=== PATIENT | female | born 1975 | race Caucasian/White ===

== ENCOUNTER 2024-04-13 19:20 | Inpatient (IN) | payer OTHER, SELFPAY ==
[2024-04-13] VITALS (7 sets, daily range): BP systolic 110–134; BP diastolic 65–95; BMI 32.2; BMI 31.2
--- NOTE | 2024-04-13 15:46 | ED.GENMED ---
History of Present Illness
General
Chief Complaint: Breathing Problem
Source: patient and family
Exam Limitations: none
Time Seen by Provider: 04/13/24 15:43
Nursing documentation reviewed up to this point in time: agreed with
Travel History
Have you had any contact with someone who has COVID-19?: No
Do you have any symptoms of coronavirus? Fever > 100 degrees, chills, cough, shortness of breath, sore throat, loss of taste or smell, muscle aches, or headache?: No
History of Present Illness
History of Present Illness:
48-year-old female presents emergency department due to shortness of breath for the last week. Is gotten worse over the past several days.
Past History
Past History
ED Past Medical History: Cancer (breast) and Other (multiple sclerosis)
ED Past Surgical History: Tonsilectomy and Other (bunionectomy, port, mastectomy, breast reconstruction)
Social History
Tobacco: Non-smoker
Alcohol: None
Drug: None
Living: with family
Review of Systems
Review of Systems
Allergies reviewed?: Yes
All Other Systems: Not applicable
Constitutional: Reports no symptoms
EENT: Reports no symptoms
Respiratory: Reports trouble breathing
Cardiac: Reports no symptoms
ABD/GI: Reports no symptoms
: Reports no symptoms
Musculoskeletal: Reports no symptoms
Skin: Reports no symptoms
Neurological: Reports no symptoms
Endocrine: Reports no symptoms
Hematologic/Lymphatic: Reports no symptoms
Psychiatric: Reports no symptoms
Phy Exam
Physical Exam
Physical Exam:
Physical Exam
General: no apparent distress, not acutely ill
Neck: supple. no meningeal signs. normal posterior pharynx
Heart: s1/s2 regular rate and rhythm, no murmur. equal radial
pulses.
HEENT: Pupils equal round reactive to light, EOMI
Lungs: no acute respiratory distress. decreased breath sounds bilaterally
Abdomen: normal bowel sounds. not tender. no CVAT
Neuro: alert and oriented. no focal neurological deficits cranial nerves II through XII intact
Skin: no rash
Psychiatric: well kept. interactive and cooperative
Extremities: no edema. no calf tenderness. negative homans. good distal pulses
Scores
Heart Failure Risk
Heart Failure Risk Score: Yes
History of Stroke or TIA: No
History of intubation for respiratory distress: No
Heart rate on ED arrival >/= 110: Yes
SaO2 <90% on arrival on room air: No
HR >/=110 during 3min walk test (or too ill to perform test): Yes
ECG has acute ischemic changes: No
Urea >/=12mmol/L (BUN 33.6mg/dL): No
Serum CO2>/=35mmol/L: No
Troponin I or T elevated to NM Level (0.4mg/dL): No
NT-proBNP >/=5,000ng/L (5,000pg/ml): Yes
HF Risk Score: 3
Admission Status: HIGH RISK 15.9% Consider SNF treatment or admission to hospital
Course
Orders/Labs/Results
Orders:
Orders
04/13/24 13:55
EKG [Electrocardiogram (*1)] Urgent
Reason for Study: Shortness of Breath
04/13/24 Dinner
Cholesterol Lowering
At Your Request: Full Participation
Does patient need a safe tray?: No
Reason for opting out of [employer] order writing: Provider Decision
Cholesterol Lowering: Sodium, 2 Gram
04/13/24 15:52
Cardiac Monitoring- Treatment ONCE
IV Insert/Care/Rem.- Treatment PRN
Pulse Ox/cont/shift [RESP] Stat
Quantity: 1
04/13/24 15:53
CR Chest - 2 Views Urgent
Comment:
Reason For Exam: short of breath
O2 Therapy [RESP] Urgent
Titrate/Wean O2 to maintain O2 sat greater than (%): 92
04/13/24 16:47
Complete Blood Count/With Diff Urgent
Comprehensive Metabolic Panel Urgent
D-Dimer Urgent
NT-proBNP Urgent
Troponin I Urgent
04/13/24 17:37
CT Chest Pe Study Urgent
Comment:
Reason For Exam: short of breath, ddimer elevated
04/13/24 18:59
Admit/Transfer Patient As Directed
Co-Sign Provider:
Level of Care: Inpatient admission
Assign to:: Telemetry
Physician / Group: blessing
Diagnosis: chf exacerbation
Reason for Telemetry: Pulmonary Edema
Date to Stop Telemetry: 04/16/24
Time to Stop Telemetry: 11:00
Reason for Hospitalization: chf exacerbation
Expected length of stay greater than two midnights?: Yes
ELOS- Estimated Length of Stay in days: 2
I certify the patient meets the requirements for IP care: Yes
04/13/24 19:00
Code Status As Directed
Resuscitation Status: Full Code
04/13/24 19:01
Furosemide [Lasix] 40 mg IV NOW STA
04/13/24 19:57
Alprazolam [Xanax] 0.5 mg PO DAILY PRN
04/13/24 19:57
Echo 2D MMode Color/Doppler Routine
Reason for Study: heart failure
Activity As Directed
Activity Level: As Tolerated
Intake/ Output As Directed
Frequency: q12h
Patient Education As Directed
Type: CHF folder
Comment: give on admission. Document in Interdisciplinary Education record
Sleep Apnea Assessment by RN As Directed
Comment:
Physician Instructions:
Vital Signs As Directed
Frequency: Other
Additional Instructions:: Q12 or per unit guidelines if more frequent.
Weight As Directed
Frequency: Daily
Type of Scale: Standing Scale
Comment: Daily morning weight. If unable to stand, use balanced bed scale.
Weight As Directed
Frequency: Once
Type of Scale: Standing Scale
Comment: Upon Admission. If unable to stand, use balanced bed scale.
Pulse Ox/cont/shift [RESP] Routine
Quantity: 1
Special Instructions: Daily pulse oximetry at rest. If greater than 92% at rest also obtain pulse oximetry
while ambulating as tolerated.
DX Deep Vein Thrombosis Video Routine
04/13/24 20:00
Heparin 5,000 units SC Q12
04/13/24 22:47
Troponin I Q6H
04/14/24 01:57
Troponin I Q6H
04/14/24 06:00
Complete Blood Count/With Diff IN AM
Comprehensive Metabolic Panel IN AM
04/14/24 07:57
Troponin I Q6H
04/14/24 08:00
Docusate Sodium [Colace] 200 mg PO DAILY
Furosemide [Lasix] 40 mg IV DAILY
Lactobac/Bifidobac [Visbiome] 1 cap PO DAILY
fexofenadine 180 mg PO DAILY
04/14/24 13:57
Troponin I Q6H
04/16/24 11:00
DC Protocol for Telemetry ONCE
Abnormal Lab Results
04/13/24
16:47
WBC 12.5 H 10^3/uL
(4.8-10.8)
MCHC 32.0 L g/dL
(33.0-37.0)
RDW 15.9 H %
(11.5-14.5)
MPV 11.2 H fL
(7.4-10.4)
Absolute Neuts (auto) 6.7 H 10^3/uL
(1.4-6.5)
Absolute Lymphs (auto) 3.8 H 10^3/uL
(1.2-3.4)
Absolute Eos (auto) 1.3 H 10^3/uL
(0-0.7)
Eosinophils % 10.3 H %
(0-6)
D-Dimer 1.75 H ug/mlFEU
(0.00-0.50)
Chloride 108 H mmol/L
(98-107)
Carbon Dioxide 20 L mmol/L
(22-30)
Glucose 101 H mg/dl
(70-99)
Total Bilirubin 1.5 H mg/dl
(0.2-1.3)
AST 52 H U/L
(14-36)
ALT 87 H U/L
(0-35)
04/13/24 16:47
04/13/24 16:47
Vital Signs
Initial and Last Documented VS:
Initial Vital Signs
Temp Pulse Resp BP Pulse Ox
97.7 F 96 18 132/94 95
04/13/24 13:51 04/13/24 13:51 04/13/24 13:51 04/13/24 13:51 04/13/24 13:51
Last Documented Vital Signs
Temp Pulse Resp BP Pulse Ox
97.7 F 112 28 134/95 93
04/13/24 13:51 04/13/24 19:12 04/13/24 18:30 04/13/24 19:12 04/13/24 18:30
MDM/Problems Addressed
Differential Diagnosis Includes:
Pulmonary embolism, CHF, pneumonia
MDM/Problems Addressed:
48-year-old female with bilateral pleural effusion, no PE, suspect CHF of unclear etiology.
Chronic conditions affecting care: Neurological disorder (Multiple sclerosis)
Acute Exacerbation and/or Progression of Chronic Illness: Neurological disorder (Multiple sclerosis)
*Radiology
Radiology exam reviewed: preliminary read by ED provider (CT chest bilateral pleural effusions, no PE)
*Pulse Oximetry
Patient hypoxic: yes
*EKG
Interpreted by ED Provider?: Yes
EKG Intrepretation Date: 04/13/24
EKG Intrepretation Time: 13:59
Interpretation: abnormal
Comparison EKG: no comparison EKG present
Heart Rate: 113
Rate: tachycardiac
Rhythm: sinus tachycardia
Viola: left axis deviation
Interval: normal interval
QRS Pattern: normal QRS
Ischemia: no ischemia
*Shank Burnisher Interpretation
Rate: normal
Interpretation: normal
Heart Rate: 95
Rhythm: sinus
*Critical Care Note
Total Time (30-74mins, 75-104mins- exclusive of procedures): Not Applicable
Patient Management
Social determinants of health affecting care: Living situation
Discussion with other providers: Hospitalist
Escalation/DeEscalation of care consider admission/obs:
admit indicated
ED Attending Note
-
Portions of this chart may have been created with voice recognition software.� Occasional wrong word or��sound alike� substitutions may have occurred due to the inherent limitations of voice recognition software.
Discharge Plan
Departure
Patient Disposition: Admit
Date of Disposition: 04/13/24
Time of Disposition: 18:37
Admit to: Telemetry
Presentation/result/management discussed w/ accepting MD/DO: Hospitalist
Patient with high blood pressure during this ER visit?: Yes
Condition: Fair
Discharge Problem:
Acute exacerbation of CHF (congestive heart failure), Bilateral pleural effusion
Interventions
Interventions:
*Risk Screen - Suicide Last Done: 04/13/24 16:00
*General Assessment Last Done: 04/13/24 16:00
*Neglect/Abuse Screening Last Done: 04/13/24 16:00
*ED COVID-19 Vaccine History Last Done: 04/13/24 16:00
ED- Cardiac Assessment Last Done: 04/13/24 16:00
ED- Pulmonary Assessment Last Done: 04/13/24 16:00
[2024-04-13 16:56] LABS: % Eosinophils 10.3 % (0-6); % Immature Granulocytes 0.3 % (0-0.5); % Lymphocytes 30.6 % (20.5-51.1); % Monocytes 4.3 % (1.7-9.3); % Neutrophils 53.5 % (42.2-75.2); Absolute Basophils 0.1 10^3/uL (0-0.2); Absolute Eosinophils 1.3 10^3/uL (0-0.7); Absolute Lymphocytes 3.8 10^3/uL (1.2-3.4); Absolute Monocytes 0.5 10^3/uL (0.1-0.6); Absolute Neutrophils 6.7 10^3/uL (1.4-6.5); Hematocrit 38.8 % (37.0-47.0); Hemoglobin 12.4 g/dL (12.0-16.0); Mean Corpuscular Hgb 27.8 pg (27.0-31.0); Mean Platelet Volume 11.2 fL (7.4-10.4); Nucleated Red Blood Cells % 0.3 %; Platelet Count 242 10^3/uL (130-400); Red Blood Cell Count 4.46 10^6/uL (4.20-5.40); Red Cell Dist. Width 15.9 % (11.5-14.5); White Blood Cell Count 12.5 10^3/uL (4.8-10.8)
[2024-04-13 17:12] LABS: D-Dimer 1.75 ug/mlFEU (0.00-0.50)
[2024-04-13 17:21] LABS: NT-proBNP 6380 pg/ml; Troponin I 0.017 ng/ml
[2024-04-13 17:46] LABS: ALT (SGPT) 87 U/L (0-35); AST (SGOT) 52 U/L (14-36); Alkaline Phosphatase 101 U/L (38-126); Blood Urea Nitrogen 14 mg/dl (7-17); Calcium 9.3 mg/dl (8.4-10.2); Carbon Dioxide 20 mmol/L (22-30); Chloride 108 mmol/L (98-107); Glucose 101 mg/dl (70-99); Potassium 4.2 mmol/L (3.5-5.1); Sodium 138 mmol/L (135-145); Total Bilirubin 1.5 mg/dl (0.2-1.3); Total Protein 6.5 g/dl (6.3-8.2); eGFR > 60.00
--- NOTE | 2024-04-13 18:53 | PHANOTE ---
Med Rec Note:
Unable to find recent fill in last year or any mention in [facility] for Furosemide. Pt states she rarely takes it.
--- NOTE | 2024-04-13 19:02 | HPS.HSE ---
Family Physician
-
Family Physician: Malcolm Marie
Chief Complaint
-
shortness of breath
History of Present Illness
48-year-old female past medical history of breast cancer, multiple sclerosis, anxiety/depression, presenting with shortness of breath for the past week which has gotten worse over the past several days which initially attribute to panic attacks.
Shortness of breath is worse with exertion and when she lies down flat. She has chronic lower extremity which stable. She denies any weight gain. She has occasional cough in the mornings which is not new and sometimes productive. She denies any
fevers or chills. She does have chest pressure as if an elephant is sitting on her chest.
She was given a prescription for Lasix previously for lower extremity edema but has not been taking it recently
She denies any family history of heart disease.
She is a former smoker. Denies alcohol use. She does use medical marijuana.
Medical History
Past Medical History
Past Medical History: Reports Other (breast cancer, multiple sclerosis, anxiety/depression,)
Past Surgical History: Reports Other (Tonsilectomy and Other (bunionectomy, port, mastectomy, breast reconstruction))
Social History
Tobacco: Former Smoker
Alcohol: None
Drug: Marijuana
Family History
Family History: Not pertinent
Allergies / Home Medications
Allergies reflects when Allergies were last updated in [facility].
Home Medications with original date entered in [facility]
Allergy/Medication List:
Allergies
Allergy/AdvReac Type Severity Reaction Status Date / Time
No Known Allergies Allergy Unverified 04/13/24 13:52
Home Medications
Fish Oil 3,000 mg PO DAILY 04/13/24
Lactobac no.2-Bifidobac no.1-S. thermo 112.5 billion cell capsule (Visbiome) 1 cap PO DAILY 04/13/24
Medical Marijuana 1 inh inhalation DAILY PRN anxiety 04/13/24
alprazolam 0.5 mg tablet 0.5 mg PO DAILY PRN anxiety 04/13/24
docusate sodium 100 mg capsule 200 mg PO DAILY 04/13/24
fexofenadine 180 mg tablet 180 mg PO DAILY 04/13/24
fiber 2 gummy PO DAILY 04/13/24
furosemide 40 mg tablet 40 mg PO BID PRN swelling 04/13/24
natalizumab 300 mg/15 mL intravenous solution (Tysabri) 300 mg IV Q4W 04/13/24
Review of Systems
-
History Source: Patient
A 12 point ROS was completed and negative except as noted: Yes
Constitutional: Reports No Symptoms
EENT: Reports No Symptoms
Respiratory: Reports See HPI
Cardiac: Reports See HPI
Abdomen/GI: Reports No Symptoms
: Reports No Symptoms
Musculoskeletal: Reports No Symptoms
Skin: Reports No Symptoms
Neurological: Reports No Symptoms
Endocrine: Reports No Symptoms
Hematologic/Lymphatic: Reports No Symptoms
Psych: Reports No Symptoms
Physical Exam
Vital Signs
Vital Signs
Temp Pulse Resp BP Pulse Ox
97.7 F 114 28 110/92 93
04/13/24 13:51 04/13/24 18:30 04/13/24 18:30 04/13/24 18:00 04/13/24 18:30
Physical Exam
General: Well Developed, Well Nourished and No Apparent Distress
HEENT: NormoCephalic, Moist mucous membranes and Atraumatic
Respiratory: Clear
Cardiac: S1/S2 and Regular Rhythm; No Murmur or Rub
GI: Soft, Non Tender, Non Distended and Normal Bowel Sounds; No Organomegaly
Rectal: Deferred by Provider
Musculoskeletal: No Clubbing, No Cyanosis and No Edema
Skin: No Rash
Neuro: Nonfocal/grossly intact
Laboratory Results
-
04/13/24 16:47
04/13/24 16:47
Laboratory Results
Total Bilirubin 1.5 mg/dl (0.2-1.3) H 04/13/24 16:47
AST 52 U/L (14-36) H 04/13/24 16:47
ALT 87 U/L (0-35) H 04/13/24 16:47
Alkaline Phosphatase 101 U/L (38-126) 04/13/24 16:47
Troponin I 0.017 ng/ml 04/13/24 16:47
Data Reviewed
-
Lab Data: Labs Reviewed by me
Old Records: Reviewed
Impression/Plan
-
IMPRESSION:
PLAN:
# Acute CHF exacerbation
# Moderate to large bilateral pleural effusions
-Elevated D-dimer prompting CT PE shows moderate to large bilateral pleural effusion with underlying pulm interstitial edema, probable bilateral lower lobe atelectasis less likely pneumonia, left upper lobe subpleural groundglass density likely
focal alveolar edema
-Cardiac BNP of 6300
-Check I's and O's, daily weights
-40 IV Lasix daily
-Check echo
-Cardiology consulted
-IR consulted for thoracentesis
Multiple sclerosis
-on Tysabri
History of breast cancer
Anxiety
-Continue alprazolam
Former smoker
Medical marijuana user
Full code
DVT prophylaxis�heparin
Cardiac diet
[2024-04-13] MEDS: LASIX 40 MG IV (19:12)
--- NOTE | 2024-04-13 20:10 | PTCARENOTE ---
Patient received from the ED via stretcher. Patient ambulated into the room. VSS, 97% on RA. No complaints of pain at this time. Patient AAOx3. Oriented to the room, call dugan is within reach.
[2024-04-13] MEDS: XANAX 0.5 MG PO (20:48)
[2024-04-13] MEDS: HEPARIN 5000 UNITS SC (20:49)
[2024-04-13 23:33] LABS: LDH 295 U/L (120-246); Total Protein 6.5 g/dl (6.3-8.2)
[2024-04-14] VITALS (8 sets, daily range): BP systolic 101–133; BP diastolic 68–98; BMI 31.2
[2024-04-14] MEDS: MELATONIN 5 MG PO ×2 (01:10→22:05)
[2024-04-14 05:36] LABS: % Eosinophils 6.4 % (0-6); % Immature Granulocytes 0.4 % (0-0.5); % Lymphocytes 34.7 % (20.5-51.1); % Monocytes 5.9 % (1.7-9.3); % Neutrophils 51.6 % (42.2-75.2); Absolute Basophils 0.1 10^3/uL (0-0.2); Absolute Eosinophils 0.7 10^3/uL (0-0.7); Absolute Lymphocytes 3.7 10^3/uL (1.2-3.4); Absolute Monocytes 0.6 10^3/uL (0.1-0.6); Absolute Neutrophils 5.4 10^3/uL (1.4-6.5); Hematocrit 37.4 % (37.0-47.0); Mean Corp Hgb Conc. 32.1 g/dL (33.0-37.0); Mean Corpuscular Hgb 27.6 pg (27.0-31.0); Mean Platelet Volume 11.8 fL (7.4-10.4); Nucleated Red Blood Cells % 0.3 %; Platelet Count 212 10^3/uL (130-400); Red Blood Cell Count 4.35 10^6/uL (4.20-5.40); Red Cell Dist. Width 15.8 % (11.5-14.5); White Blood Cell Count 10.5 10^3/uL (4.8-10.8)
[2024-04-14 05:46] LABS: Troponin I 0.026 ng/ml
[2024-04-14 06:24] LABS: ALT (SGPT) 70 U/L (0-35); AST (SGOT) 38 U/L (14-36); Albumin 3.8 g/dl (3.5-5.0); Alkaline Phosphatase 91 U/L (38-126); Blood Urea Nitrogen 16 mg/dl (7-17); Calcium 9.2 mg/dl (8.4-10.2); Carbon Dioxide 21 mmol/L (22-30); Chloride 107 mmol/L (98-107); Estimated Creatinine Clearance 96 ml/min; Glucose 91 mg/dl (70-99); Potassium 4.1 mmol/L (3.5-5.1); Sodium 139 mmol/L (135-145); Total Bilirubin 1.7 mg/dl (0.2-1.3); Total Protein 6.2 g/dl (6.3-8.2); eGFR > 60.00
[2024-04-14] MEDS: COLACE 200 MG PO (07:41)
[2024-04-14] MEDS: LASIX 40 MG IV ×2 (07:42→15:20)
[2024-04-14] MEDS: CLARITIN 10 MG PO (07:42)
[2024-04-14] MEDS: VISBIOME 1 CAP PO (07:42)
[2024-04-14] MEDS: HEPARIN 5000 UNITS SC ×2 (07:42→19:34)
--- NOTE | 2024-04-14 08:30 | CON.CAR ---
Consultation
Consultation Request
Date/Time Consultation Requested: Apr 13 2024
Date/Time Consultation Performed: Apr 14 2024
Requesting Provider: hospitalist
Performing Provider: Semaj Corbett
Reason for Consultation: CHF
Medical History
-
Chief Complaint: SOB
History of Present Illness:
48-year-old female with past medical history of breast cancer, MS, anxiety/depression, who is presenting today with worsening shortness of breath. She tells me that over the last week or 2 she has noticed weight gain bloating and profound dyspnea
on exertion. Over the last few nights she has not been able to lie flat. She would wake up gasping for air. She tells me she struggles to complete full sentences because she is so short of breath. Thus, because of all of these worsening symptoms
she decided to present to the emergency room. In the emergency room she was found to have bilateral pleural effusions and she was admitted for heart failure exacerbation.
Past Medical History
Past Medical History: Other (breast cancer, MS, anxiety/depression)
Past Surgical History: Other (Tonsilectomy and Other (bunionectomy, port, mastectomy, breast reconstruction))
Social History
Tobacco: Former Smoker
Alcohol: Occasional
Drug: Marijuana
Personal: Single
Living: With Family (mother)
Employment: Employed
Family History
Family History: Reviewed & Not Pertinent
Allergies / Home Medications
Allergy/AdvReac Type Severity Reaction Status Date / Time
No Known Allergies Allergy Unverified 04/13/24 13:52
�Medication �Instructions �Recorded �Confirmed �Type
Fish Oil 3,000 mg PO DAILY 04/13/24 04/13/24 History
Lactobac no.2-Bifidobac no.1-S. 1 cap PO DAILY 04/13/24 04/13/24 History
thermo 112.5 billion cell capsule
(Visbiome)
Medical Marijuana 1 inh inhalation DAILY PRN anxiety 04/13/24 04/13/24 History
alprazolam 0.5 mg tablet 0.5 mg PO DAILY PRN anxiety 04/13/24 04/13/24 History
docusate sodium 100 mg capsule 200 mg PO DAILY 04/13/24 04/13/24 History
fexofenadine 180 mg tablet 180 mg PO DAILY 04/13/24 04/13/24 History
fiber 2 gummy PO DAILY 04/13/24 04/13/24 History
furosemide 40 mg tablet 40 mg PO BID PRN swelling 04/13/24 04/13/24 History
natalizumab 300 mg/15 mL 300 mg IV Q4W 04/13/24 04/13/24 History
intravenous solution (Tysabri)
Review of Systems
-
All other systems: Negative unless noted
Physical Exam
Vital Signs
Temp Pulse Resp BP Pulse Ox
98 F 68 16 103/68 97
04/14/24 07:40 04/14/24 07:42 04/14/24 07:40 04/14/24 07:42 04/14/24 07:40
Lab Results
04/14/24 04:51
04/14/24 04:51
Troponin I 0.026 ng/ml 04/14/24 04:51
Ktf-R-Minjmfhujer Pept 6380 pg/ml 04/13/24 16:47
Physical Exam
General: Well Developed and Well Nourished
HEENT: Normocephalic
Respiratory: Other (decreased b/s b/l with absent b/s at the right lower lung base )
Cardiac: Regular Rhythm
GI: Soft
Musculoskeletal: Edema (mild)
Skin: Warm and Dry
Neuro: AO x 3
Psych: Calm
Impression / Plan
-
48-year-old female with history of breast cancer, MS, anxiety/depression who is here today for shortness of breath and new HFrEF.
Acute HFrEF
- lasix 40 IV bid
- thoracentesis
- GDMT: SGLT2i will start, ARNI: low dose Entresto, add metoprolol once HF symptoms better controlled, spironolactone at some point
- Re-evalaute EF in ~ 2-3 months
MS
Breast Ca
Marijuana
- encouraged cessation from smoking
Data Reviewed
-
EKG: Tracing Personally Visualized and interpreted (sr)
Medical Tests (Nuc Med, Echo etc): Image Personally Visualized and interpreted (severely reduced LV fxn )
Labs: Labs Reviewed by me
--- NOTE | 2024-04-14 09:55 | PTCARENOTE ---
Patient had thora today on right side with 1400 mls drained. CXR without evidence of pneumothorax. Will give additional dose of IV lasix today and start Jardiance as ordered.
--- NOTE | 2024-04-14 10:05 | W.PN.HOSP.TC ---
Today's Communication/Plan
-
Continue diuretics
Assessment / Plan
Assessment / Plan
Gen-AAOx3, NAD
HEENT-NC, AT, anicteric, clear oral mm
Neck-supple
CV-reg, no M, +S1/S2
Lungs-clear B/L
Abd-soft, NT, ND
Ext-bilateral lower extremity lymphedema
Musculoskeletal-no cyanosis, clubbing
Skin-warm and dry
Neuro-grossly non-focal
Psych-calm, cooperative
Acute hypoxic respiratory insufficiency -likely due to acute heart failure exacerbation, bilateral pulmonary edema, pleural effusions. Oxygenation normal on room air. Shortness of breath started [address] chest negative for pulmonary embolism. Does show moderate to large bilateral effusions and atelectasis. Left upper lobe subpleural groundglass density of unclear etiology. Consider repeat CT chest in 6 to 12 months.
Acute heart failure reduced EF exacerbation -new diagnosis of heart failure. Echocardiogram completed, report pending. Cardiology following. Continue IV Lasix. Etiology of heart failure unclear so far. BNP 6380.
Bilateral pleural effusions -suspect related to heart failure exacerbation. Right-sided thoracentesis completed today. Awaiting fluid studies. Residual left-sided effusion remains.
Elevated LFTs -unclear etiology. Possible adverse effect of natalizumab.
History of breast cancer -treated 7 years ago and considered cured. Oncologist is in [place].
Bilateral lower extremity lymphedema -she was using as needed Lasix at home, last use was 1 month ago.
Multiple sclerosis -controlled.
Anxiety/depression
Obesity due to excess calories
Full code
Anticipated Discharge: > 48 hours
Subjective/Interval History
-
Date of Service: April 14, 2024
Patient seen and examined. Had thoracentesis this morning, feeling better with less shortness of breath but not back to baseline.
Objective Data
-
Labs:
Laboratory Results
04/14/24
04:51
WBC 10.5
Hgb 12.0
Hct 37.4
Plt Count 212
Sodium 139
Potassium 4.1
Chloride 107
Carbon Dioxide 21 L
BUN 16
Creatinine 0.7
Glucose 91
Calcium 9.2
Total Bilirubin 1.7 H
AST 38 H
ALT 70 H
Alkaline Phosphatase 91
Vital Signs:
Vital Signs
Temp Pulse Resp BP Pulse Ox
98 F 103 18 112/98 97
04/14/24 08:34 04/14/24 09:06 04/14/24 09:06 04/14/24 09:06 04/14/24 09:58
Review of Systems
-
History Source: Patient
All other systems: Reviewed and negative
[2024-04-14] MEDS: JARDIANCE 10 MG PO (10:20)
[2024-04-14 10:40] LABS: Body Fluid pH 7.44
[2024-04-14 10:43] LABS: Body Fluid Mononuclear 95.3 %; Body Fluid Polymorphonuclear 4.7 %; Body Fluid WBC 255 /CUMM
[2024-04-14 10:56] LABS: Body Fluid Amylase < 30 U/L; Body Fluid Glucose 94 mg/dl; Body Fluid LDH < 90 U/L; Body Fluid Protein < 2.0 g/dl; Body Fluid Triglycerides < 30 mg/dl
[2024-04-14 11:12] LABS: Body Fluid Second Tech EF
--- NOTE | 2024-04-14 13:27 | PTCARENOTE ---
Echo with EF 15 - 20%. Patient given heart failure booklet. Reviewed information in booklet and assigned heart failure videos. Patient started on Jardiance - given written medication handout from [employer]. Patient states that she is tired and will
review at a later time and ask questions as they arise.
--- NOTE | 2024-04-14 16:12 | CM ---
met with patient who states mom lives with hre in the [facility],no [place],her bed and bath is on second level,she amb i and is I with hr adl. she has no home oxygen or oter dme.her pcpis dr jacome and she uses [facility] on [address] in
[place].patient has b=never had a vn or n=been in ip rehab.
patient with a hx of breast cancer,ms is adm with chf.she is on iv lasix,sating 97% on ra,,had r sided thoracentesis done.discussed home care with patient and she has declined.Plan:home with no services.
[2024-04-14] MEDS: XANAX 0.5 MG PO (22:06)
[2024-04-15 03:21] VITALS: BP 102/71
[2024-04-15 06:00] VITALS: BMI 29.5
[2024-04-15 06:14] LABS: ALT (SGPT) 48 U/L (0-35); AST (SGOT) 27 U/L (14-36); Albumin 3.6 g/dl (3.5-5.0); Alkaline Phosphatase 81 U/L (38-126); Blood Urea Nitrogen 18 mg/dl (7-17); Calcium 8.9 mg/dl (8.4-10.2); Carbon Dioxide 25 mmol/L (22-30); Chloride 102 mmol/L (98-107); Estimated Creatinine Clearance 75 ml/min; Glucose 89 mg/dl (70-99); Potassium 3.5 mmol/L (3.5-5.1); Sodium 138 mmol/L (135-145); Total Bilirubin 2.5 mg/dl (0.2-1.3); eGFR > 60.00
[2024-04-15 07:35] VITALS: BP 98/68
[2024-04-15] MEDS: COLACE PO ×2 (07:47→13:28)
[2024-04-15] MEDS: JARDIANCE 10 MG PO (07:47)
[2024-04-15] MEDS: HEPARIN 5000 UNITS SC ×2 (07:47→21:42)
[2024-04-15] MEDS: CLARITIN 10 MG PO (07:47)
[2024-04-15] MEDS: VISBIOME 1 CAP PO (07:47)
[2024-04-15] MEDS: LASIX 40 MG IV (07:48)
[2024-04-15] MEDS: ENTRESTO 24 MG/26 MG 1 TAB PO (08:14)
--- NOTE | 2024-04-15 09:18 | W.PN.CD ---
Today's Communication / Plan
-
Continue diuresis
GDMT as BP allows
Heart failure educator/dietary consulted
Impression / Plan
-
BACKGROUND: 48-year-old female with history of breast cancer, MS, anxiety/depression who is here today for shortness of breath and new HFrEF.
HFrEF (EF 15-20%), acute/severe, requiring hospitalization
-Etiology currently unclear
-Diuresis with furosemide 40 mg IV BID, she is down 4 kg from admission
-Bilateral pleural effusions (thora right lung 04/15/2024 1300mL clear aly fluid)
- GDMT as tolerated
-SGLT2i: Jardiance 10 mg daily
-ARNI: Entresto 24/26 mg BID
-Beta anton: will add metoprolol succinate once HF symptoms better controlled
-MRA: spironolactone at some point
-Trend daily weight, I/O, and BMP with diuresis
-Re-evaluate EF in ~2-3 months
-Heart failure education
Severe mitral regurgitation
Severe tricuspid regurgitation
MS, no acute flare
Breast Ca, status postchemotherapy and XRT 7 years ago, in remission (oncology at [facility])
Marijuana, encouraged cessation from smoking
SUBJECTIVE:
Shortness of breath: Improving. Chest pain: None. Dizziness: None.
Physical Exam
Vital Signs/Labs
Vital Signs
Temp Pulse Resp BP Pulse Ox
98.7 F 99 16 98/68 99
04/15/24 07:35 04/15/24 08:14 04/15/24 07:35 04/15/24 08:14 04/15/24 07:35
04/14/24 04/15/24 04/16/24
06:59 06:59 06:59
Actual Weight 79.917 kg 75.551 kg
04/14/24 04:51
05/18/24 04:54
04/13/24
16:47
Zyl-O-Nwgvahufmlm Pept 6380
LAB Results
04/13/24 04/13/24 04/14/24
16:47 23:14 04:51
Troponin I 0.017 0.030 D 0.026
Physical Exam
Constitutional: No acute distress and Comfortable
EENT: Anicteric and Moist mucous membranes
Cardiovascular: Rhythm & rate is regular (Tachycardia), Systolic murmur present and S1S2 is normal
Respiratory: Respiratory effort normal and Lungs clear to auscul.
GI: Soft, Distention absent, Flat, Non tender and Normal bowel sounds
Neuro/Psych: AO x 3
Other: Skin
Data Reviewed
-
Date of Service: April 15, 2024
EKG: Report Reviewed by me
Echo: Report Reviewed by me
Labs: Labs Reviewed by me
Old Records: Reviewed
[2024-04-15] MEDS: LOW STRENGTH ASPIRIN 324 MG PO (10:38)
[2024-04-15 11:20] VITALS: BP 98/57
--- NOTE | 2024-04-15 11:32 | W.PN.HOSP.TC ---
Today's Communication/Plan
-
Continue diuretics
Add potassium
Trend LFTs
Assessment / Plan
Assessment / Plan
Gen-AAOx3, NAD
HEENT-NC, AT, anicteric, clear oral mm
Neck-supple
CV-reg, no M, +S1/S2
Lungs-clear B/L
Abd-soft, NT, ND
Ext-bilateral lower extremity lymphedema
Musculoskeletal-no cyanosis, clubbing
Skin-warm and dry
Neuro-grossly non-focal
Psych-calm, cooperative
Acute hypoxic respiratory insufficiency -likely due to acute heart failure exacerbation, bilateral pulmonary edema, pleural effusions. Oxygenation normal on room air. Shortness of breath started [address] chest negative for pulmonary embolism. Does show moderate to large bilateral effusions and atelectasis. Left upper lobe subpleural groundglass density of unclear etiology. Consider repeat CT chest in 6 to 12 months.
Acute heart failure reduced EF exacerbation -new diagnosis of heart failure. Echocardiogram shows LVEF 15 to 20%, global severe hypokinesis with akinesis of the basal inferior wall, dilated RV with mildly reduced systolic function, severe MR,
severe TR. Continue IV Lasix. Etiology of heart failure unclear so far. BNP 6380.
Anticipate cardiac catheterization on Wednesday per cardiology.
Bilateral pleural effusions -suspect related to heart failure exacerbation. Right-sided thoracentesis completed April 14, fluid studies consistent with transudate and therefore likely due to heart failure. Residual left-sided effusion remains.
Elevated LFTs -unclear etiology, possibly due to passive congestion from heart failure. Possible adverse effect of natalizumab. Rising bilirubin noted. Asymptomatic.
History of breast cancer -treated 7 years ago and considered cured. Oncologist is in [place].
Bilateral lower extremity lymphedema -she was using as needed Lasix at home, last use was 1 month ago.
Multiple sclerosis -controlled.
Anxiety/depression
Obesity due to excess calories
Full code
Anticipated Discharge: > 48 hours
Subjective/Interval History
-
Date of Service: April 15, 2024
Patient seen and examined. No complaints.
Objective Data
-
Labs:
Laboratory Results
04/15/24
04:54
Sodium 138
Potassium 3.5
Chloride 102
Carbon Dioxide 25
BUN 18 H
Creatinine 0.9
Glucose 89
Calcium 8.9
Total Bilirubin 2.5 H
AST 27
ALT 48 H
Alkaline Phosphatase 81
Vital Signs:
Vital Signs
Temp Pulse Resp BP Pulse Ox
98.7 F 99 16 98/68 97
04/15/24 07:35 04/15/24 08:14 04/15/24 07:35 04/15/24 08:14 04/15/24 07:35
I&O
04/14/24 04/15/24 04/16/24
06:59 06:59 06:59
Intake Total 480 / 480
Balance 480 / 480
Review of Systems
-
History Source: Patient
All other systems: Reviewed and negative
[2024-04-15 12:07] LABS: Direct Bilirubin 0.4 mg/dl (0.0-0.4)
--- NOTE | 2024-04-15 12:39 | CM ---
CM consulted for med pricing
Pricing completed via ambulatory orders
Full coverage/$0 for all meds (Farxiga, Entresto, Jardiance)
Of note, Farxiga is covered but generic is not per amb orders
Update to Jaky Munoz/brock
ADC >48 hours
CM will continue to follow for dc planning
Discharge Disposition- home, no needs anticipated
[2024-04-15] MEDS: KCL 20 MEQ PO (13:00)
--- NOTE | 2024-04-15 13:29 | PTCARENOTE ---
Patient started on Entresto today. Lexicomp patient education given. Reviewed with patient. Patient verbalizes understanding of teaching. Denies questions at this time.
[2024-04-15 15:33] VITALS: BP 82/55
[2024-04-15] MEDS: LASIX IV (16:10)
--- NOTE | 2024-04-15 16:39 | PTCARENOTE ---
Patient with BP 83/55. Verbal order to hold Lasix this afternoon. Patient asymptomatic.
[2024-04-15 19:47] VITALS: BP 105/74
[2024-04-15] MEDS: SENOKOT 8.59999999999999964 MG PO (21:34)
[2024-04-15] MEDS: COLACE 100 MG PO (21:34)
[2024-04-15] MEDS: TOPROL XL 12.5 MG PO (21:41)
[2024-04-15] MEDS: XANAX 0.5 MG PO (22:34)
[2024-04-15] MEDS: MELATONIN 5 MG PO (22:34)
[2024-04-15 23:00] VITALS: BP 106/67
[2024-04-16] VITALS (7 sets, daily range): BP systolic 88–109; BP diastolic 54–73; BMI 29.3
[2024-04-16 06:24] LABS: ALT (SGPT) 41 U/L (0-35); AST (SGOT) 28 U/L (14-36); Albumin 3.5 g/dl (3.5-5.0); Alkaline Phosphatase 73 U/L (38-126); Blood Urea Nitrogen 17 mg/dl (7-17); Calcium 8.7 mg/dl (8.4-10.2); Carbon Dioxide 27 mmol/L (22-30); Chloride 103 mmol/L (98-107); Estimated Creatinine Clearance 82 ml/min; Glucose 86 mg/dl (70-99); Potassium 3.7 mmol/L (3.5-5.1); Sodium 137 mmol/L (135-145); Total Bilirubin 2.2 mg/dl (0.2-1.3); Total Protein 5.9 g/dl (6.3-8.2); eGFR > 60.00
--- NOTE | 2024-04-16 08:39 | W.PN.HOSP.TC ---
Today's Communication/Plan
-
N.p.o. after midnight
Assessment / Plan
Assessment / Plan
Gen-AAOx3, NAD
HEENT-NC, AT, anicteric, clear oral mm
Neck-supple
CV-reg, no M, +S1/S2
Lungs-clear B/L
Abd-soft, NT, ND
Ext-bilateral lower extremity lymphedema
Musculoskeletal-no cyanosis, clubbing
Skin-warm and dry
Neuro-grossly non-focal
Psych-calm, cooperative
Acute hypoxic respiratory insufficiency -likely due to acute heart failure exacerbation, bilateral pulmonary edema, pleural effusions. Oxygenation normal on room air. Shortness of breath started [address] chest negative for pulmonary embolism. Does show moderate to large bilateral effusions and atelectasis. Left upper lobe subpleural groundglass density of unclear etiology. Consider repeat CT chest in 6 to 12 months.
Acute heart failure reduced EF exacerbation -new diagnosis of heart failure. Echocardiogram shows LVEF 15 to 20%, global severe hypokinesis with akinesis of the basal inferior wall, dilated RV with mildly reduced systolic function, severe MR,
severe TR. Etiology of heart failure unclear so far. BNP 6380.
Anticipate cardiac catheterization on Wednesday per cardiology.
Entresto and Lasix now on hold for hypotension. Suspect Entresto was the main etiology of the drop in blood pressure. Discussed with cardiology. Remains asymptomatic from hypotension standpoint.
Bilateral pleural effusions -suspect related to heart failure exacerbation. Right-sided thoracentesis completed April 14, fluid studies consistent with transudate and therefore likely due to heart failure. Residual left-sided effusion remains.
Elevated LFTs -unclear etiology, possibly due to passive congestion from heart failure. Possible adverse effect of natalizumab. Rising bilirubin noted. Asymptomatic.
History of breast cancer -treated 7 years ago and considered cured. Oncologist is in [place].
Bilateral lower extremity lymphedema -she was using as needed Lasix at home, last use was 1 month ago.
Multiple sclerosis -controlled.
Anxiety/depression
Obesity due to excess calories
Full code
Anticipated Discharge: > 48 hours
Subjective/Interval History
-
Date of Service: April 16, 2024
Patient seen and examined. No complaints.
Objective Data
-
Labs:
Laboratory Results
04/16/24
05:09
Sodium 137
Potassium 3.7
Chloride 103
Carbon Dioxide 27
BUN 17
Creatinine 0.8
Glucose 86
Calcium 8.7
Total Bilirubin 2.2 H
AST 28
ALT 41 H
Alkaline Phosphatase 73
Vital Signs:
Vital Signs
Temp Pulse Resp BP Pulse Ox
98.0 F 86 18 88/61 99
04/16/24 07:45 04/16/24 07:45 04/16/24 07:45 04/16/24 07:45 04/16/24 07:45
I&O
04/15/24 04/16/24 04/17/24
06:59 06:59 06:59
Intake Total 480 / 480 1200 / 1200
Balance 480 / 480 1200 / 1200
Review of Systems
-
History Source: Patient
All other systems: Reviewed and negative
[2024-04-16] MEDS: HEPARIN 5000 UNITS SC ×2 (09:06→19:44)
[2024-04-16] MEDS: VISBIOME 1 CAP PO (09:06)
[2024-04-16] MEDS: JARDIANCE 10 MG PO (09:06)
[2024-04-16] MEDS: KCL 20 MEQ PO (09:07)
[2024-04-16] MEDS: CLARITIN 10 MG PO (09:07)
[2024-04-16] MEDS: LOW STRENGTH ASPIRIN 81 MG PO (09:07)
[2024-04-16] MEDS: COLACE 200 MG PO (09:09)
[2024-04-16] MEDS: TOPROL XL 12.5 MG PO ×2 (09:09→19:43)
--- NOTE | 2024-04-16 09:35 | W.PN.CD ---
Today's Communication / Plan
-
Continue Lasix
RHC AND LHC April 17
NPO after midngiht today
K>4 Bairon > 2
Impression / Plan
-
BACKGROUND: 48-year-old female with history of breast cancer, MS, anxiety/depression who is here today for shortness of breath and new HFrEF.
HFrEF (EF 15-20%), acute/severe, requiring hospitalization
-Etiology currently unclear, likely chemo/radiation related, HOWEVER, RHC AND LHC April 17
-Diuresis with furosemide 40 mg IV BID, held yesterday for low BP
-Bilateral pleural effusions (thora right lung 04/15/2024 1300mL clear aly fluid)
- GDMT as tolerated
-SGLT2i: Jardiance 10 mg daily
-ARNI: held until more euvolemic (Hypotension April 15)
-Beta anton: increase metoprolol
-MRA: spironolactone at some point
-Trend daily weight, I/O, and BMP with diuresis
-Re-evaluate EF in ~2-3 months
-Heart failure education
Severe mitral regurgitation
Severe tricuspid regurgitation
MS, no acute flare
Breast Ca, status postchemotherapy and XRT 7 years ago, in remission (oncology at [facility])
Marijuana, encouraged cessation from smoking
SUBJECTIVE:
Feeling better today
Physical Exam
Vital Signs/Labs
Vital Signs
Temp Pulse Resp BP Pulse Ox
98.0 F 84 18 99/63 99
04/16/24 07:45 04/16/24 09:09 04/16/24 07:45 04/16/24 09:09 04/16/24 07:45
04/15/24 04/16/24 04/17/24
06:59 06:59 06:59
Actual Weight 166 lb 9 oz 165 lb 3 oz
04/14/24 04:51
05/19/24 05:09
04/13/24
16:47
Ufo-D-Sgdddpwkchl Pept 6380
LAB Results
04/13/24 04/13/24 04/14/24
16:47 23:14 04:51
Troponin I 0.017 0.030 D 0.026
Physical Exam
Constitutional: No acute distress
EENT: Anicteric
Cardiovascular: Rhythm & rate is regular
Respiratory: Respiratory effort normal and Lungs clear to auscul.
GI: Soft
Neuro/Psych: AO x 3
Data Reviewed
-
Date of Service: April 16, 2024
EKG: Tracing Personally Visualized and interpreted (sr pvcs)
Echo: Report Reviewed by me
Labs: Labs Reviewed by me
[2024-04-16] MEDS: LASIX 40 MG IV ×2 (10:33→16:23)
[2024-04-16] MEDS: MELATONIN 5 MG PO (22:30)
[2024-04-16] MEDS: XANAX 0.5 MG PO (22:30)
[2024-04-17] VITALS (22 sets, daily range): BP systolic 66–106; BP diastolic 50–86; BMI 28.9
[2024-04-17 06:15] LABS: ALT (SGPT) 30 U/L (0-35); AST (SGOT) 21 U/L (14-36); Albumin 3.7 g/dl (3.5-5.0); Alkaline Phosphatase 73 U/L (38-126); Blood Urea Nitrogen 15 mg/dl (7-17); Carbon Dioxide 28 mmol/L (22-30); Chloride 100 mmol/L (98-107); Estimated Creatinine Clearance 82 ml/min; Glucose 87 mg/dl (70-99); Potassium 3.5 mmol/L (3.5-5.1); Sodium 137 mmol/L (135-145); Total Bilirubin 1.9 mg/dl (0.2-1.3); Total Protein 6.1 g/dl (6.3-8.2); eGFR > 60.00
[2024-04-17] MEDS: HEPARIN 5000 UNITS SC ×2 (08:03→20:09)
[2024-04-17] MEDS: CLARITIN 10 MG PO (08:05)
[2024-04-17] MEDS: JARDIANCE 10 MG PO (08:06)
[2024-04-17] MEDS: VISBIOME 1 CAP PO (08:06)
[2024-04-17] MEDS: COLACE PO (08:06)
[2024-04-17] MEDS: LOW STRENGTH ASPIRIN 81 MG PO (08:06)
[2024-04-17] MEDS: KCL 20 MEQ PO (08:06)
[2024-04-17] MEDS: TOPROL XL 12.5 MG PO ×2 (08:06→20:09)
[2024-04-17] MEDS: LASIX IV ×2 (09:07→17:12)
--- NOTE | 2024-04-17 10:45 | ITS.CL.CATH ---
Manager Technical Support - Catheterization
Cardiac Catheterization
Procedure Report:
CARDIAC CATHETERIZATION REPORT
Date of Procedure: 04/17/2024
Referring: Semaj Corbett M.D.
Indication: New congestive heart failure.
PROCEDURE:
1. Right heart catheterization.
2. Left heart catheterization.
3. Coronary angiography.
4. Left ventriculography.
ACCESS:
6 [place] right femoral artery using a modified Seldinger technique with a micropuncture kit under ultrasound guidance.
5 [place] right femoral vein using a modified Seldinger technique with a micropuncture kit under ultrasound guidance.
CATHETERS:
1. 5 [place] balloon wedge.
2. 5 [place] JL 4.
3. 5 [place] JR4.
4. 5 [place] angled pigtail.
HEMODYNAMIC DATA
Weight (kg): 73.9
AO (s/d/x mmHg): 83/58/68
LV (s/x mmHg): 87/23 (A wave to 31)
PCWP (a/v/x mmHg): /
PA (s/d/x mmHg): //
RV (s/x mmHg): 45/5
RA (a/v/x mmHg):
SVC SvO2 (%): 60.5
PA SvO2 (%): 60.4
SaO2 (%): 97.1
Hbg (g/dL): 12.0
CO (L/min): 3.07
CI (L/min/m2): 1.73
TPG (mmHg): 6
PVR (Whitehead Units): 1.95
SVR (dynes*seconds*cm^-5): 1642
AVO2 Diff (Volume %): 5.99
AV gradient (x, mmHg): None.
AV area (cm2): Normal.
LEFT VENTRICULOGRAPHY: Performed in an [place] projection. Severely dilated left ventricle with severe global hypokinesis and akinesis of the inferior wall with severely depressed systolic function. Left ventricular ejection fraction estimated at
15%. There is severe (3+) mitral valve regurgitation. There is no aortic valve insufficiency. The aortic root and visualized ascending and descending aorta appear normal.
CORONARY ANGIOGRAPHY
Dominance: Right.
Left Main: Normal size, bifurcating vessel. There is no coronary artery disease.
LAD: Normal size vessel giving rise to 2 significant diagonals. There is no coronary artery disease.
Ramus: Congenitally absent.
Circumflex: Normal size, nondominant vessel. There is no coronary artery disease.
RCA: Normal size, dominant vessel. There is no coronary artery disease.
INTERVENTIONS
None.
Closure Device: 6 [place] Angio-Seal for the right common femoral artery, manual pressure for the right common femoral vein.
Radiation dose (mGy): 239.06
DAP (cm2.Gy): 22.7507
Fluoroscopy time (minutes): 10.4
Sedation time (minutes): 14
CONCLUSIONS:
1. Right dominant circulation with no coronary artery disease.
2. Severely dilated left ventricle with severe global hypokinesis and akinesis of the inferior wall with severely depressed systolic function. LV ejection fraction estimated at 15%.
3. Severe mitral valve regurgitation (3+).
4. Severely depressed cardiac index (1.73 L/min/m�).
5. Moderately elevated filling pressures (LVEDP = 23 mmHg, PCWP = 23 mmHg at 73.9 kg) with evidence of diastolic dysfunction (A wave to 31 mmHg).
RECOMMENDATIONS:
1. Expectant management after cardiac catheterization via right common femoral approach.
2. Limited weight bearing for one week.
3. Guideline directed medical therapy as hemodynamically tolerated. Start with SGLT2 inhibitors given minimal blood pressure effect.
4. Consider transfer to IVU/CVICU for inotrope therapy given severely depressed systolic function and severely depressed cardiac index.
5. Continue diuresis as blood pressure will allow. She will require higher than normal LVEDP/PCWP given the severity of her cardiomyopathy and preload dependence.
Copy to: Semaj Corbett M.D., Malcolm Marie D.O.
Sumanth Hunter DO, FACC, FACP
--- NOTE | 2024-04-17 10:52 | CM ---
Attempted to visit with Nadia today, however she was out of her room for heart cath. Assessment completed previously. Will follow up later today to check in and provide support.
--- NOTE | 2024-04-17 12:16 | W.PN.HOSP.TC ---
Today's Communication/Plan
-
IV Lasix
Continue goal-directed medical therapy
Monitor blood pressure
Cardiology recs
Assessment / Plan
Assessment / Plan
Gen-AAOx3, NAD
HEENT-NC, AT, anicteric, clear oral mm
Neck-supple
CV-reg, no M, +S1/S2
Lungs-clear B/L
Abd-soft, NT, ND
Ext-bilateral lower extremity lymphedema
Musculoskeletal-no cyanosis, clubbing
Skin-warm and dry
Neuro-grossly non-focal
Psych-calm, cooperative
Acute hypoxic respiratory insufficiency -likely due to acute heart failure exacerbation, bilateral pulmonary edema, pleural effusions. Oxygenation normal on room air. Shortness of breath started [address] chest negative for pulmonary embolism. Does show moderate to large bilateral effusions and atelectasis. Left upper lobe subpleural groundglass density of unclear etiology. Consider repeat CT chest in 6 to 12 months.
Acute heart failure reduced EF exacerbation -new diagnosis of heart failure. Echocardiogram shows LVEF 15 to 20%, global severe hypokinesis with akinesis of the basal inferior wall, dilated RV with mildly reduced systolic function, severe MR,
severe TR. Etiology of heart failure unclear so far. BNP 6380.
Entresto and Lasix now on hold for hypotension. Suspect Entresto was the main etiology of the drop in blood pressure. Remains asymptomatic from hypotension standpoint. Restarted on Lasix.
Awaiting cardiac cath results-with severely elevated wedge pressure may need pressure support for increased diuresis as blood pressure.
Continue with Jardiance
Bilateral pleural effusions -suspect related to heart failure exacerbation. Right-sided thoracentesis completed April 14, fluid studies consistent with transudate and therefore likely due to heart failure. Residual left-sided effusion remains.
Elevated LFTs -unclear etiology, possibly due to passive congestion from heart failure. Possible adverse effect of natalizumab. Rising bilirubin noted. Asymptomatic.
History of breast cancer -treated 7 years ago and considered cured. Oncologist is in [place].
Bilateral lower extremity lymphedema -she was using as needed Lasix at home, last use was 1 month ago.
Multiple sclerosis -controlled.
Anxiety/depression
Obesity due to excess calories
Full code
Discussed with patient mother and aunt at bedside in detail
Anticipated Discharge: > 48 hours
Subjective/Interval History
-
Date of Service: April 17, 2024
Seen postcardiac catheterization
Resting in bed
Denies any groin pain
Objective Data
-
Labs:
Laboratory Results
04/17/24
05:20
Sodium 137
Potassium 3.5
Chloride 100
Carbon Dioxide 28
BUN 15
Creatinine 0.8
Glucose 87
Calcium 9.0
Total Bilirubin 1.9 H
AST 21
ALT 30
Alkaline Phosphatase 73
Vital Signs:
Vital Signs
Temp Pulse Resp BP Pulse Ox
98.2 F 86 16 95/65 100
04/17/24 11:51 04/17/24 11:51 04/17/24 11:51 04/17/24 11:51 04/17/24 11:51
I&O
04/16/24 04/17/24 04/18/24
06:59 06:59 06:59
Intake Total 1200 / 1200 720 / 720
Balance 1200 / 1200 720 / 720
Data Reviewed
-
Total Time Spent with Patient (in minutes): 55
[2024-04-17] MEDS: FARXIGA 10 MG PO (14:07)
--- NOTE | 2024-04-17 15:30 | PTCARENOTE ---
PT taken to IVU with belongings, Right groin site post cath CDI, Report given to Russ VASQUEZ.
[2024-04-17] MEDS: DOBUTREX 250 MG IV (16:06)
--- NOTE | 2024-04-17 16:57 | PTCARENOTE ---
Pt received as transfer from 4th floor. AAOx3. Able to ambulate independently from wheelchair to bed. NSR/ST on remote broadcast technician. HRs 80s-100s. Pt started on Dobutamine gtt at 10mcg/kg/min at 1606. Pt rang call dugan at approximately 1630 and stated
that 'I do not feel right, I feel very hot'. Pt BP 66/50 MAP 57. Infusion stopped. Pt BP at 1700 now 92/61 MAP 70. Pt states 'feeling back to normal'. IMAGING TECH made aware. Plan to keep of Dobutamine gtt and hold evening Lasix dose.
--- NOTE | 2024-04-17 17:12 | W.PN.CD ---
Today's Communication / Plan
-
Add dopamine to dobutamine.
Monitor UOP.
She may need an indwelling [place].
Impression / Plan
-
Impression/Plan: 48-year-old female with history of breast cancer s/p radiation, MS, anxiety/depression admitted with new HFrEF.
#HFrEF (EF 15-20%)
-Acute/severe, requiring hospitalization.
-Non-ischemic, likely chemo/radiation related.
-Cardiac catheterization shows, no CAD, moderately elevated filling pressures, severely depressed cardiac index (1.7 L/min/m2). Patient will require higher pressures as she is likely preload dependent/
-Bilateral pleural effusions (thoracentesis of right lung on 04/15/2024 yielded 1300mL clear aly fluid).
-GDMT as tolerated
-SGLT2i: Empagliflozin changed to dapagliflozin 10 mg daily
-ARNI: BP will not yet tolerate.
-Beta anton: tolerating metoprolol succinate 12.5 mg BID.
-MRA: spironolactone at some point.
-Trend daily weight, I/O, and BMP with diuresis
-Transfer to IVU.
-Hypotension with dobutamine. Start concomitant dopamine.
#Severe mitral/tricuspid regurgitation
-New diagnosis.
-Likely functional due to severe LV dilation.
-LV < 20%, no role for XOCHILT.
#MS
-Chronic, stable.
#Breast Ca
-Chronic, stable.
-Status postchemotherapy and XRT 7 years ago, in remission (oncology at [facility]).
#Marijuana, encouraged cessation from smoking
Subjective/Interval History:
Weight is down nearly 6 kg from admission.
Catheterization shows no CAD, moderately elevated filling pressures and severely depressed cardiac function (CI = 1.7 L/min/m2).
Patient transferred to IVU and started on dobutamine, but then became hypotensive. Dobutamine stopped.
DATA:
TTE, 04/14/2024:
CONCLUSIONS
Moderate to severely dilated LV with severely reduced systolic function.
LVEF is 15 to 20% by visual estimation.
Global severe hypokinesis with akinesis of the basal inferior wall.
Dilated RV with mildly reduced systolic function.
Severe mitral regurgitation.
Severe tricuspid regurgitation.
Estimated pulmonary artery pressure of 45-50 mmHg assuming a right atrial
pressure of 15 mmHg.
No prior study for comparison.
Cardiac Catheterization, 04/17/2024:
CONCLUSIONS:
1. Right dominant circulation with no coronary artery disease.
2. Severely dilated left ventricle with severe global hypokinesis and akinesis of the inferior wall with severely depressed systolic function. LV ejection fraction estimated at 15%.
3. Severe mitral valve regurgitation (3+).
4. Severely depressed cardiac index (1.73 L/min/m�).
5. Moderately elevated filling pressures (LVEDP = 23 mmHg, PCWP = 23 mmHg at 73.9 kg) with evidence of diastolic dysfunction (A wave to 31 mmHg).
Physical Exam
Vital Signs/Labs
Vital Signs
Temp Pulse Resp BP Pulse Ox
36.8 C 85 16 88/54 99
04/17/24 14:51 04/17/24 16:46 04/17/24 14:51 04/17/24 16:45 04/17/24 14:51
04/16/24 04/17/24 04/18/24
11:59 11:59 11:59
Actual Weight 74.928 kg 73.992 kg
04/14/24 04:51
04/17/24 05:20
04/13/24
16:47
Yac-N-Annxrtmnpip Pept 6380
Physical Exam
Constitutional: No acute distress and Comfortable
EENT: Anicteric and Moist mucous membranes
Cardiovascular: Rhythm & rate is regular, Pedal edema is absent, JVD pressure is normal, Systolic murmur present and S1S2 is normal
Respiratory: Respiratory effort normal, Lungs clear to auscul., Wheeze Absent, Crackles Absent and Rhonchi Absent
GI: Soft, Distention absent, Flat, Non tender and Normal bowel sounds
Neuro/Psych: AO x 3
Other: Cath Site (Right femoral access sites are C/D/I.)
Data Reviewed
-
Date of Service: April 17, 2024
Medical Decision Making: Reviewed Test Results, Independent Historian Assessment and Test Interpretation
EKG: Tracing Personally Visualized and interpreted and Report Reviewed by me
Echo: Tracing Personally Visualized and interpreted and Report Reviewed by me
X-Ray/CT/US/MRI/NUC/PET: Image Personally Visualized and interpreted and Report Reviewed by me
Medical Tests (PFT, Pathology etc): Image Personally Visualized and interpreted and Report Reviewed by me
Labs: Labs Reviewed by me
Old Records: Reviewed
--- NOTE | 2024-04-17 18:49 | PTCARENOTE ---
Dr. Hunter at bedside with pt. Per Dr. Hunter will hold off on starting dopamine gtt tonight unless BPs become unstable. Order for dopamine gtt will remain in, in case gtt required for BP support overnight. Pt aware of plan.
[2024-04-17] MEDS: MELATONIN 5 MG PO (22:10)
[2024-04-17] MEDS: XANAX 0.5 MG PO (22:11)
--- NOTE | 2024-04-17 23:37 | PTCARENOTE ---
OOB in chair for most of the evening. No complaints of pain or discomfort. Right femoral groin cath sites wnl. Thoracentesis site open to air. Monitor shows SR-ST 70's to 100. Mostly in SR. Voiding without difficulty.
[2024-04-18] VITALS (17 sets, daily range): BP systolic 68–116; BP diastolic 44–78; BMI 28.9
[2024-04-18 05:44] LABS: Hematocrit 37.9 % (37.0-47.0); Hemoglobin 12.2 g/dL (12.0-16.0); Mean Corp Hgb Conc. 32.2 g/dL (33.0-37.0); Mean Corpuscular Hgb 27.9 pg (27.0-31.0); Mean Corpuscular Volume 86.5 fL (81.0-99.0); Mean Platelet Volume 10.8 fL (7.4-10.4); Platelet Count 224 10^3/uL (130-400); Red Blood Cell Count 4.38 10^6/uL (4.20-5.40); Red Cell Dist. Width 15.5 % (11.5-14.5)
[2024-04-18 06:41] LABS: Blood Urea Nitrogen 15 mg/dl (7-17); Calcium 9.5 mg/dl (8.4-10.2); Carbon Dioxide 26 mmol/L (22-30); Chloride 102 mmol/L (98-107); Estimated Creatinine Clearance 81 ml/min; Glucose 82 mg/dl (70-99); Sodium 135 mmol/L (135-145); eGFR > 60.00
--- NOTE | 2024-04-18 06:45 | PTCARENOTE ---
Asymptomatic with b/p of 79/61 to 86/70 this morning.
[2024-04-18] MEDS: COLACE 100 MG PO (09:31)
[2024-04-18] MEDS: LASIX 40 MG IV (09:32)
[2024-04-18] MEDS: CLARITIN 10 MG PO (09:32)
[2024-04-18] MEDS: KCL 20 MEQ PO (09:32)
[2024-04-18] MEDS: LOW STRENGTH ASPIRIN 81 MG PO (09:33)
[2024-04-18] MEDS: TOPROL XL 12.5 MG PO (09:33)
[2024-04-18] MEDS: VISBIOME 1 CAP PO (09:34)
[2024-04-18] MEDS: HEPARIN 5000 UNITS SC ×2 (09:36→21:31)
[2024-04-18] MEDS: FARXIGA 10 MG PO (09:36)
--- NOTE | 2024-04-18 10:30 | W.PN.CD ---
Today's Communication / Plan
-
cont dapagliflozin 10 mg daily
try lisinopril 2.5mg daily today
tolerating metoprolol succinate 12.5 mg BID
transition to lasix 40mg PO daily tomorrow
Impression / Plan
-
Impression/Plan: 48-year-old female with history of breast cancer s/p radiation, MS, anxiety/depression admitted with new HFrEF.
#HFrEF (EF 15-20%), NICM
-Acute/severe, requiring hospitalization.
-we discussed topic of referral to advanced HF center: she is not ready for this now, but understands likely needed in future, especially if BP limits GDMT
-Non-ischemic, likely chemo/radiation related.
-Cardiac catheterization shows, no CAD, moderately elevated filling pressures, severely depressed cardiac index (1.7 L/min/m2)
-Bilateral pleural effusions (s/p thoracentesis of right lung on 04/15/2024 yielded 1300mL clear aly fluid).
-GDMT as tolerated: BP is main limitation currently
-SGLT2i: cont dapagliflozin 10 mg daily
-CARLI/ARB/ARNI: try lisinopril 2.5mg daily today
-Beta anton: tolerating metoprolol succinate 12.5 mg BID
-MRA: spironolactone at some point, pehaps as outpatient
-she received IV lasix this AM: trend labs and tele
-transition to lasix 40mg PO daily tomorrow
#Severe mitral/tricuspid regurgitation
-New diagnosis.
-Likely functional due to severe LV dilation.
-LV < 20%, no role for XOCHILT.
#MS
-Chronic, stable.
#Breast Ca
-Chronic, stable.
-Status postchemotherapy and XRT 7 years ago, in remission (oncology at [facility]).
#Marijuana, encouraged cessation from smoking
Subjective/Interval History:
SOB and edema better.
DATA:
TTE, 04/14/2024:
CONCLUSIONS
Moderate to severely dilated LV with severely reduced systolic function.
LVEF is 15 to 20% by visual estimation.
Global severe hypokinesis with akinesis of the basal inferior wall.
Dilated RV with mildly reduced systolic function.
Severe mitral regurgitation.
Severe tricuspid regurgitation.
Estimated pulmonary artery pressure of 45-50 mmHg assuming a right atrial
pressure of 15 mmHg.
No prior study for comparison.
Cardiac Catheterization, 04/17/2024:
CONCLUSIONS:
1. Right dominant circulation with no coronary artery disease.
2. Severely dilated left ventricle with severe global hypokinesis and akinesis of the inferior wall with severely depressed systolic function. LV ejection fraction estimated at 15%.
3. Severe mitral valve regurgitation (3+).
4. Severely depressed cardiac index (1.73 L/min/m�).
5. Moderately elevated filling pressures (LVEDP = 23 mmHg, PCWP = 23 mmHg at 73.9 kg) with evidence of diastolic dysfunction (A wave to 31 mmHg).
Physical Exam
Vital Signs/Labs
Vital Signs
Temp Pulse Resp BP Pulse Ox
97.9 F 96 16 82/60 98
04/18/24 08:10 04/18/24 08:10 04/18/24 08:10 04/18/24 05:16 04/18/24 08:10
04/17/24 04/18/24 04/19/24
06:59 06:59 06:59
Actual Weight 73.992 kg 73.9 kg
04/18/24 05:12
04/18/24 05:12
04/13/24
16:47
Mmu-Z-Dfkaxcedlos Pept 6380
Physical Exam
Constitutional: No acute distress and Comfortable
EENT: Moist mucous membranes
Cardiovascular: Rhythm & rate is regular, Pedal edema present, JVD present and Systolic murmur present
Respiratory: Respiratory effort normal and Lungs clear to auscul.
GI: Soft, Distention absent and Flat
Neuro/Psych: AO x 3
Data Reviewed
-
Date of Service: April 18, 2024
EKG: Other (SR 70s-80s, occasional PVC and triplets)
Labs: Labs Reviewed by me
--- NOTE | 2024-04-18 10:48 | W.PN.HOSP.TC ---
Today's Communication/Plan
-
Continue with goal-directed medical therapy
Monitor blood pressure
Assessment / Plan
Assessment / Plan
Gen-AAOx3, NAD
HEENT-NC, AT, anicteric, clear oral mm
Neck-supple
CV-reg, no M, +S1/S2
Lungs-clear B/L
Abd-soft, NT, ND
Ext-bilateral lower extremity lymphedema
Musculoskeletal-no cyanosis, clubbing
Skin-warm and dry
Neuro-grossly non-focal
Psych-calm, cooperative
Acute hypoxic respiratory insufficiency -likely due to acute heart failure exacerbation, bilateral pulmonary edema, pleural effusions. Oxygenation normal on room air. Shortness of breath started [address] chest negative for pulmonary embolism. Does show moderate to large bilateral effusions and atelectasis. Left upper lobe subpleural groundglass density of unclear etiology. Consider repeat CT chest in 6 to 12 months.
Acute heart failure reduced EF exacerbation -new diagnosis of heart failure. Echocardiogram shows LVEF 15 to 20%, global severe hypokinesis with akinesis of the basal inferior wall, dilated RV with mildly reduced systolic function, severe MR,
severe TR. Etiology of heart failure unclear so far. BNP 6380.
Suspect Entresto was the main etiology of the drop in blood pressure. Remains asymptomatic from hypotension standpoint. Restarted on Lasix.
Cardiac catheterization on 04/17 shows no coronary artery disease and no intervention performed. Moderately elevated filling pressure. Nonischemic cardiomyopathy raises possibility due to chemotherapy.
Continue with Jardiance plan for low-dose CARLI inhibitor. Did not tolerate Entresto. Lasix 40 mg on discharge. Cont KCL.
GDMT limited due to hypotension.
Bilateral pleural effusions -suspect related to heart failure exacerbation. Right-sided thoracentesis completed April 14, fluid studies consistent with transudate and therefore likely due to heart failure. Residual left-sided effusion remains.
Stable on room air.
Elevated LFTs -unclear etiology, possibly due to passive congestion from heart failure. Possible adverse effect of natalizumab. Rising bilirubin noted. Asymptomatic.
History of breast cancer -treated 7 years ago and considered cured. Oncologist is in [place].
Bilateral lower extremity lymphedema -she was using as needed Lasix at home, last use was 1 month ago.
Multiple sclerosis -controlled.
Anxiety/depression
Obesity due to excess calories
Full code
Anticipated Discharge: Within 24 hours
Subjective/Interval History
-
Date of Service: April 18, 2024
Denies lightheaded or dizziness
Objective Data
-
Labs:
Laboratory Results
04/18/24
05:12
WBC 9.0
Hgb 12.2
Hct 37.9
Plt Count 224
Sodium 135
Potassium 4.0
Chloride 102
Carbon Dioxide 26
BUN 15
Creatinine 0.8
Glucose 82
Calcium 9.5
Vital Signs:
Vital Signs
Temp Pulse Resp BP Pulse Ox
97.9 F 96 16 82/60 98
04/18/24 08:10 04/18/24 08:10 04/18/24 08:10 04/18/24 05:16 04/18/24 08:10
I&O
04/17/24 04/18/24 04/19/24
06:59 06:59 06:59
Intake Total 720 / 720 120 / 120
Balance 720 / 720 120 / 120
Data Reviewed
-
Total Time Spent with Patient (in minutes): 55
[2024-04-18] MEDS: ZESTRIL 2.5 MG PO (12:03)
--- NOTE | 2024-04-18 13:01 | CM ---
CM following for DC planning needs.
Pt. transferred to IVU yesterday.
Reviewed initial assessment. Pt. resides w/ mother in a multi level private home. Pt. is functionally indep. w/ ADLs, mobility without the use of any assisted device.
Anticipate DC to home once medically stable, without needs.
Will cont. to follow.
[2024-04-18] MEDS: TOPROL XL PO (21:19)
[2024-04-18] MEDS: ProAmatine 5 MG PO (23:18)
[2024-04-19] VITALS (17 sets, daily range): BP systolic 74–106; BP diastolic 54–80; PULSE 85–98; BMI 28.9
--- NOTE | 2024-04-19 00:27 | PTCARENOTE ---
Pt.'s BP running low this shift, 74/59 @1926, pt. completely asymptomatic. House DRAW[facility] IN [facility] Karli notified, hold parameters placed on Toprol. BP up to 87/66 at 2046 (Toprol held), but then dropped to 70/48 @ 2224 (pt. still asymptomatic). Dr. Perkins
notified, Toprol and lisinopril placed on hold, midodrine ordered and given. Nisa Brown into see pt. and aware of situation. BP 1hr post midodrine 75/57. Nisa Brown made aware; will recheck in 1 hour. Pt. remains asymptomatic, NSR on the
monitor in the 80's.
[2024-04-19] MEDS: MELATONIN PO (00:39)
--- NOTE | 2024-04-19 04:26 | PTCARENOTE ---
Pt.'s BP 74/65 (taken 3 times, all similar results, on different arms and in different positions, see vitals flow sheet). Pt. remains asymptomatic. Nisa Brown notified, no new orders for now.
[2024-04-19 05:22] LABS: Blood Urea Nitrogen 18 mg/dl (7-17); Calcium 9.1 mg/dl (8.4-10.2); Carbon Dioxide 27 mmol/L (22-30); Chloride 99 mmol/L (98-107); Estimated Creatinine Clearance 81 ml/min; Glucose 85 mg/dl (70-99); Potassium 4.2 mmol/L (3.5-5.1); Sodium 134 mmol/L (135-145); eGFR > 60.00
--- NOTE | 2024-04-19 07:22 | W.PN.CD ---
Today's Communication / Plan
-
Intermittent LR 250 mL boluses.
Cardiac MRI.
I will reach out to [facility] to make them aware of this patient.
Impression / Plan
-
Impression/Plan: 48-year-old female with history of breast cancer s/p radiation, MS, anxiety/depression admitted with new HFrEF.
#HFrEF (EF 15-20%), NICM
-Acute/severe, requiring hospitalization.
-we discussed topic of referral to advanced HF center: she is not ready for this now, but understands likely needed in future, especially if BP limits GDMT
-Non-ischemic, likely chemo/radiation related.
-Cardiac catheterization shows, no CAD, moderately elevated filling pressures, severely depressed cardiac index (1.7 L/min/m2)
-Bilateral pleural effusions (s/p thoracentesis of right lung on 04/15/2024 yielded 1300mL clear aly fluid).
-GDMT as tolerated: BP is main limitation currently
-SGLT2i: Continue dapagliflozin 10 mg daily.
-CARLI/ARB/ARNI: Did not tolerate lisinopril 2.5 mg daily.
-Beta anton: Previously tolerating metoprolol succinate 12.5 mg BID, now on hold with hypotension.
-MRA: spironolactone at some point, pehaps as outpatient.
-I suspect she is below her optimal volume madelaine and will be relatively preload dependent.
-LR 250 mL bolus.
-Hold any further diuretics at this time.
-She will need a cardiac MRI.
-She is asymptomatic, but I will still touch base with our colleagues at [facility].
#Severe mitral/tricuspid regurgitation
-New diagnosis.
-Likely functional due to severe LV dilation.
-LV < 20%, no role for XOCHILT.
#MS
-Chronic, stable.
#Breast Ca
-Chronic, stable.
-Status postchemotherapy and XRT 7 years ago, in remission (oncology at [facility]).
#Marijuana, encouraged cessation from smoking
Subjective/Interval History:
Patient received furosemide 40 mg IV and lisinopril 2.5 mg PO yesterday.
BP's have been low (70's/50'5) throughout the night.
Hold parameters placed on all GDMT and patient was given midodrine without meaningful effect.
Patient is asymptomatic.
DATA:
TTE, 04/14/2024:
CONCLUSIONS
Moderate to severely dilated LV with severely reduced systolic function.
LVEF is 15 to 20% by visual estimation.
Global severe hypokinesis with akinesis of the basal inferior wall.
Dilated RV with mildly reduced systolic function.
Severe mitral regurgitation.
Severe tricuspid regurgitation.
Estimated pulmonary artery pressure of 45-50 mmHg assuming a right atrial
pressure of 15 mmHg.
No prior study for comparison.
Cardiac Catheterization, 04/17/2024:
CONCLUSIONS:
1. Right dominant circulation with no coronary artery disease.
2. Severely dilated left ventricle with severe global hypokinesis and akinesis of the inferior wall with severely depressed systolic function. LV ejection fraction estimated at 15%.
3. Severe mitral valve regurgitation (3+).
4. Severely depressed cardiac index (1.73 L/min/m�).
5. Moderately elevated filling pressures (LVEDP = 23 mmHg, PCWP = 23 mmHg at 73.9 kg) with evidence of diastolic dysfunction (A wave to 31 mmHg).
Physical Exam
Vital Signs/Labs
Vital Signs
Temp Pulse Resp BP Pulse Ox
36.8 C 96 16 74/65 100
04/19/24 01:39 04/19/24 04:12 04/19/24 01:39 04/19/24 04:12 04/19/24 01:39
04/17/24 04/18/24 04/19/24
11:59 11:59 11:59
Actual Weight 73.992 kg 73.9 kg 73.9 kg
04/18/24 05:12
04/19/24 04:07
04/13/24
16:47
[id number]-Ewdhknxbgoe Pept 6380
Physical Exam
Constitutional: No acute distress and Comfortable
EENT: Anicteric and Moist mucous membranes
Cardiovascular: Rhythm & rate is regular, Pedal edema is absent, JVD pressure is normal, S1S2 is normal and Murmur/rub/gallop absent
Respiratory: Respiratory effort normal, Lungs clear to auscul., Wheeze Absent, Crackles Absent and Rhonchi Absent
GI: Soft, Distention absent, Flat, Non tender and Normal bowel sounds
Neuro/Psych: AO x 3
Other: Cath Site (Right common femoral access sites are C/D/I.)
Data Reviewed
-
Date of Service: April 19, 2024
Medical Decision Making: Reviewed Test Results, Independent Historian Assessment, Test Interpretation and Review of Case with other Provider
EKG: Tracing Personally Visualized and interpreted and Report Reviewed by me
Echo: Tracing Personally Visualized and interpreted and Report Reviewed by me
X-Ray/CT/US/MRI/NUC/PET: Image Personally Visualized and interpreted and Report Reviewed by me
Medical Tests (PFT, Pathology etc): Image Personally Visualized and interpreted, Report Reviewed by me, Discussed with Physician and Discussed with Patient
Labs: Labs Reviewed by me
[2024-04-19] MEDS: COLACE PO (08:17)
[2024-04-19] MEDS: KCL PO (08:18)
[2024-04-19] MEDS: VISBIOME 1 CAP PO (08:34)
[2024-04-19] MEDS: FARXIGA 10 MG PO (08:34)
[2024-04-19] MEDS: CLARITIN 10 MG PO (08:34)
[2024-04-19] MEDS: LOW STRENGTH ASPIRIN 81 MG PO (10:14)
[2024-04-19] MEDS: LR 250 IV (10:17)
[2024-04-19] MEDS: HEPARIN 5000 UNITS SC ×2 (10:59→19:48)
--- NOTE | 2024-04-19 11:49 | CM ---
CM following for DC planning needs.
Anticipate DC to home once medically stable.
Will cont. to follow.
--- NOTE | 2024-04-19 11:58 | W.PN.HOSP.TC ---
Today's Communication/Plan
-
IVF bolus
monitor BP
Cards recs
Assessment / Plan
Assessment / Plan
Gen-AAOx3, NAD
HEENT-NC, AT, anicteric, clear oral mm
Neck-supple
CV-reg, no M, +S1/S2
Lungs-clear B/L
Abd-soft, NT, ND
Ext-bilateral lower extremity lymphedema
Musculoskeletal-no cyanosis, clubbing
Skin-warm and dry
Neuro-grossly non-focal
Psych-calm, cooperative
Acute heart failure reduced EF exacerbation -new diagnosis of heart failure. Echocardiogram shows LVEF 15 to 20%, global severe hypokinesis with akinesis of the basal inferior wall, dilated RV with mildly reduced systolic function, severe MR,
severe TR. BNP 6380.
Cardiac catheterization on 04/17 shows no coronary artery disease and no intervention performed. Moderately elevated filling pressure. Nonischemic cardiomyopathy raises possibility due to chemotherapy.
Continue with Jardiance. Now with persistent hypotension and unable to tolerate goal-directed medical therapy associated with beta-blockers, low-dose CARLI inhibitor and Lasix and Entresto.
GDMT severely limited due to hypotension. Monitor on tele-Eventually will require ICD.
Per intervention cardiology IV fluids ordered
Cards reaching out to [facility].
Acute hypoxic respiratory insufficiency -likely due to acute heart failure exacerbation, bilateral pulmonary edema, pleural effusions. Oxygenation normal on room air. Shortness of breath started [address] chest negative for pulmonary embolism. Does show moderate to large bilateral effusions and atelectasis. Left upper lobe subpleural groundglass density of unclear etiology. Consider repeat CT chest in 6 to 12 months.
Bilateral pleural effusions -suspect related to heart failure exacerbation. Right-sided thoracentesis completed April 14, fluid studies consistent with transudate and therefore likely due to heart failure. Residual left-sided effusion remains.
Stable on room air.
Elevated LFTs -unclear etiology, possibly due to passive congestion from heart failure. Possible adverse effect of natalizumab. Rising bilirubin noted. Asymptomatic.
History of breast cancer -treated 7 years ago and considered cured. Oncologist is in [place].
Bilateral lower extremity lymphedema -she was using as needed Lasix at home, last use was 1 month ago.
Multiple sclerosis -controlled.
Anxiety/depression
Obesity due to excess calories
Full code
Anticipated Discharge: > 48 hours
Subjective/Interval History
-
Date of Service: April 19, 2024
Pt with frustration due to her medical condition
Objective Data
-
Labs:
Laboratory Results
04/19/24
04:07
Sodium 134 L
Potassium 4.2
Chloride 99
Carbon Dioxide 27
BUN 18 H
Creatinine 0.8
Glucose 85
Calcium 9.1
Vital Signs:
Vital Signs
Temp Pulse Resp BP Pulse Ox
98.6 F 89 14 78/59 98
04/19/24 11:16 04/19/24 11:16 04/19/24 08:00 04/19/24 08:01 04/19/24 11:16
I&O
04/18/24 04/19/24 04/20/24
06:59 06:59 06:59
Intake Total 120 / 120 480 / 480
Balance 120 / 120 480 / 480
--- NOTE | 2024-04-19 12:30 | PTCARENOTE ---
Pt BP remained low this am 80/63. Seen by Dr Hunter and Dr Diaz. LR 250ml bolus ordered and started. Pt c/o 'fuzzy' vision, denies field cut. She denies any other symptoms. Dr Diaz notified. After talking with Pt, she became less symptomatic.
Her BP also began to improve. Her last BP 98/56
--- NOTE | 2024-04-19 19:03 | PTCARENOTE ---
Pt received at 1545. Pt oob ad hany in the room. Denies any dizziness or lightheadedness. No change in status from earlier assessment.
[2024-04-19] MEDS: LOPRESSOR PO (20:18)
[2024-04-19] MEDS: MELATONIN 5 MG PO (22:35)
[2024-04-20] VITALS (8 sets, daily range): BP systolic 90–123; BP diastolic 63–85; BMI 28.9
--- NOTE | 2024-04-20 01:10 | PTCARENOTE ---
Received patient at change of shift. Pt w/ hx of mastectomy on left side, and reports lymph nodes were removed. Patient refuses to wear limb alert band on left arm. Pt stated 'I don't want anything else on me that Im going to have to remove later'.
Despite education, patient refused band.
Tele monitor shows SR w/ BBBC and occasional PVCs. Patient denies any chest pain or discomfort. Patients bp laying 79/63. Denies any dizziness. Patient requested RN to obtain orthos which revealed a BP 99/72 sitting and 106/80 standing. Patient due
for 12.5mg of Lopressor. Dr. Perkins made aware, and instructed RN to hold dose. See MAR for further details. Patient ambulates self in room, gait steady, and denies any lightheadedness. Patient instructed to ring for staff if any changes. Call dugan
in reach.
[2024-04-20] MEDS: FLUSH (NSS) 2 FLUSH IV (03:54)
[2024-04-20 04:09] LABS: % Basophils 0.9 % (0-2); % Eosinophils 13.3 % (0-6); % Immature Granulocytes 0.3 % (0-0.5); % Monocytes 4.4 % (1.7-9.3); % Neutrophils 28.1 % (42.2-75.2); Absolute Basophils 0.1 10^3/uL (0-0.2); Absolute Eosinophils 1.4 10^3/uL (0-0.7); Absolute Lymphocytes 5.4 10^3/uL (1.2-3.4); Absolute Monocytes 0.5 10^3/uL (0.1-0.6); Absolute Neutrophils 2.9 10^3/uL (1.4-6.5); Hemoglobin 11.8 g/dL (12.0-16.0); Mean Corp Hgb Conc. 31.9 g/dL (33.0-37.0); Mean Corpuscular Hgb 27.6 pg (27.0-31.0); Mean Corpuscular Volume 86.4 fL (81.0-99.0); Mean Platelet Volume 10.2 fL (7.4-10.4); Nucleated Red Blood Cells % 0.2 %; Platelet Count 230 10^3/uL (130-400); Red Blood Cell Count 4.28 10^6/uL (4.20-5.40); Red Cell Dist. Width 15.4 % (11.5-14.5); White Blood Cell Count 10.2 10^3/uL (4.8-10.8)
[2024-04-20 04:31] LABS: Blood Urea Nitrogen 17 mg/dl (7-17); Calcium 9.2 mg/dl (8.4-10.2); Carbon Dioxide 26 mmol/L (22-30); Chloride 102 mmol/L (98-107); Estimated Creatinine Clearance 81 ml/min; Glucose 90 mg/dl (70-99); Magnesium 2.4 mg/dl (1.6-2.3); Potassium 4.2 mmol/L (3.5-5.1); Sodium 135 mmol/L (135-145); eGFR > 60.00
--- NOTE | 2024-04-20 07:29 | W.PN.CD ---
Today's Communication / Plan
-
Metoprolol tartrate 12.5 mg this morning.
Cardiac MRI ordered and pending.
Discharge planning.
Impression / Plan
-
Impression/Plan: 48-year-old female with history of breast cancer s/p radiation, MS, anxiety/depression admitted with new HFrEF.
#HFrEF (EF 15-20%), NICM
-Acute/severe, requiring hospitalization.
-Presenting as a large pleural effusions, s/p right sided thoracentesis for 1300 mL of transudate, pathology pending.
-Cardiac catheterization shows, no CAD, moderately elevated filling pressures (LVEDP = 23 mmHg, PCWP = 23 mmHg @ 73.9 kg), severely depressed cardiac index (1.7 L/min/m2), SVR of 1642. Cardiomyopathy is likely chemo/radiation mediated.
-Patient became hypotensive with dobutamine.
-She is chronically hypotensive (reports similar BP readings at PCP office). Diuretics (plus lisinopril 2.5 mg) on 04/18/2024 lead to persistent BP's in the 70/50's.
-Her hypotensions responded well to LR bolus, confirming likely preload dependence (she will need an LVEDP of 22-23 to maintain perfusing pressure).
-GDMT as tolerated: BP is main limitation currently.
-SGLT2i: Continue dapagliflozin 10 mg daily.
-CARLI/ARB/ARNI: Did not tolerate lisinopril 2.5 mg daily.
-Beta anton: metoprolol tartrate 12.5 mg BID ordered yesterday but held due to hypotension, in spite of negative (in fact reverse) orthostatics.
-MRA: spironolactone at some point, perhaps as outpatient.
-Diuretics changed to PRN weight gain.
-Cardiac MRI has been ordered.
-Challenge with metoprolol this morning to see if she will tolerate it.
-She is asymptomatic, but I discussed with our colleagues at [facility]. They are in agreement that she should be seen by advanced HF (possibly future MCS, transplant eval) in [place] or [facility].
-If she tolerates beta anton, we will consider starting standing midodrine and adding lisinopril.
#Severe mitral/tricuspid regurgitation
-New diagnosis.
-Likely functional due to severe LV dilation.
-LV < 20%, no role for XOCHILT.
#MS
-Chronic, stable.
#Breast Ca
-Chronic, stable.
-Status postchemotherapy and XRT 7 years ago, in remission (oncology at [facility]).
#Marijuana, encouraged cessation from smoking
#Dispo
-IVU status.
-Full code.
-Discharge planning (today vs. tomorrow).
Subjective/Interval History:
BP responded to LR bolus yesterday.
Metoprolol tartrate ordered to reassess her response/tolerance to beta blockers, but medication held due to hypotension.
Patient requested orthostatics, where BP otoniel with change in position.
DATA:
TTE, 04/14/2024:
CONCLUSIONS
Moderate to severely dilated LV with severely reduced systolic function.
LVEF is 15 to 20% by visual estimation.
Global severe hypokinesis with akinesis of the basal inferior wall.
Dilated RV with mildly reduced systolic function.
Severe mitral regurgitation.
Severe tricuspid regurgitation.
Estimated pulmonary artery pressure of 45-50 mmHg assuming a right atrial
pressure of 15 mmHg.
No prior study for comparison.
Cardiac Catheterization, 04/17/2024:
CONCLUSIONS:
1. Right dominant circulation with no coronary artery disease.
2. Severely dilated left ventricle with severe global hypokinesis and akinesis of the inferior wall with severely depressed systolic function. LV ejection fraction estimated at 15%.
3. Severe mitral valve regurgitation (3+).
4. Severely depressed cardiac index (1.73 L/min/m�).
5. Moderately elevated filling pressures (LVEDP = 23 mmHg, PCWP = 23 mmHg at 73.9 kg) with evidence of diastolic dysfunction (A wave to 31 mmHg).
Physical Exam
Vital Signs/Labs
Vital Signs
Temp Pulse Resp BP Pulse Ox
36.7 C 86 16 90/67 95
04/20/24 03:50 04/20/24 04:00 04/20/24 03:50 04/20/24 03:49 04/20/24 03:50
04/18/24 04/19/24 04/20/24
11:59 11:59 11:59
Actual Weight 73.9 kg 73.9 kg 74 kg
04/20/24 03:59
04/20/24 03:59
Magnesium 2.4 mg/dl (1.6-2.3) H 04/20/24 03:59
04/13/24
16:47
Ndq-[id number] Pept 6380
Physical Exam
Constitutional: No acute distress and Comfortable
EENT: Anicteric and Moist mucous membranes
Cardiovascular: Rhythm & rate is regular, Pedal edema is absent, JVD pressure is normal, S1S2 is normal and Murmur/rub/gallop absent
Respiratory: Respiratory effort normal, Lungs clear to auscul., Wheeze Absent, Crackles Absent and Rhonchi Absent
GI: Soft, Distention absent, Flat, Non tender and Normal bowel sounds
Neuro/Psych: AO x 3
Data Reviewed
-
Date of Service: April 20, 2024
Medical Decision Making: Reviewed Test Results, Independent Historian Assessment and Test Interpretation
EKG: Tracing Personally Visualized and interpreted and Report Reviewed by me
Echo: Tracing Personally Visualized and interpreted and Report Reviewed by me
X-Ray/CT/US/MRI/NUC/PET: Image Personally Visualized and interpreted and Report Reviewed by me
Medical Tests (PFT, Pathology etc): Image Personally Visualized and interpreted and Report Reviewed by me
Labs: Labs Reviewed by me
[2024-04-20] MEDS: COLACE PO (08:12)
[2024-04-20] MEDS: LOW STRENGTH ASPIRIN 81 MG PO (08:12)
[2024-04-20] MEDS: CLARITIN 10 MG PO (08:12)
[2024-04-20] MEDS: FARXIGA 10 MG PO (08:12)
[2024-04-20] MEDS: VISBIOME 1 CAP PO (08:12)
[2024-04-20] MEDS: HEPARIN 5000 UNITS SC ×2 (08:13→20:07)
[2024-04-20] MEDS: LOPRESSOR 12.5 MG PO ×2 (08:50→21:34)
--- NOTE | 2024-04-20 13:12 | W.PN.HOSP.TC ---
Today's Communication/Plan
-
Lisinopril with +/- midodrine
cards recs
monitor BP
Assessment / Plan
Assessment / Plan
Gen-AAOx3, NAD
HEENT-NC, AT, anicteric, clear oral mm
Neck-supple
CV-reg, no M, +S1/S2
Lungs-clear B/L
Abd-soft, NT, ND
Ext-bilateral lower extremity lymphedema
Musculoskeletal-no cyanosis, clubbing
Skin-warm and dry
Neuro-grossly non-focal
Psych-calm, cooperative
Acute heart failure reduced EF exacerbation -new diagnosis of heart failure. Echocardiogram shows LVEF 15 to 20%, global severe hypokinesis with akinesis of the basal inferior wall, dilated RV with mildly reduced systolic function, severe MR,
severe TR. BNP 6380.
Cardiac catheterization on 04/17 shows no coronary artery disease and no intervention performed. Moderately elevated filling pressure. Nonischemic cardiomyopathy raises possibility due to chemotherapy.
Continue with Jardiance. Now with persistent hypotension and unable to tolerate goal-directed medical therapy associated with beta-blockers, low-dose CARLI inhibitor and Lasix and Entresto.
GDMT severely limited due to hypotension. Monitor on tele-Eventually will require ICD.
Restarted/reintroduce beta-anton. Tolerating so far
Plan to restart low-dose lisinopril with midodrine if needed. Would prefer Lasix as needed for weight gain. Patient was recommended to check daily weights and check blood pressure at home
Cardiac MRI completed earlier with dilated left ventricular with diffuse diminished contractility EF of 19%. No abnormal enhancement of the left ventricle or the rest of the heart. Severe mitral and tricuspid regurgitation.
Cardiology discussion with [facility] Patient will need to be evaluated for outpatient transplant eval and advanced heart failure clinic
Acute hypoxic respiratory insufficiency -likely due to acute heart failure exacerbation, bilateral pulmonary edema, pleural effusions. Oxygenation normal on room air. Shortness of breath started [address] chest negative for pulmonary embolism. Does show moderate to large bilateral effusions and atelectasis. Left upper lobe subpleural groundglass density of unclear etiology. Consider repeat CT chest in 6 to 12 months.
Bilateral pleural effusions -suspect related to heart failure exacerbation. Right-sided thoracentesis completed April 14, fluid studies consistent with transudate and therefore likely due to heart failure. Residual left-sided effusion remains.
Stable on room air. I
Elevated LFTs -unclear etiology, possibly due to passive congestion from heart failure. Possible adverse effect of natalizumab. Rising bilirubin noted. Asymptomatic.
History of breast cancer -treated 7 years ago and considered cured. Oncologist is in [place].
Bilateral lower extremity lymphedema -she was using as needed Lasix at home, last use was 1 month ago.
Multiple sclerosis -controlled.
Anxiety/depression
Obesity due to excess calories
Full code
Discussed with patient mother at bedside
Anticipated Discharge: Within 24 hours
Subjective/Interval History
-
Date of Service: April 20, 2024
Resting in bed comfortably no chest pain shortness of breath
Received beta-antno earlier
Denies lightheaded dizziness
Objective Data
-
Labs:
Laboratory Results
04/20/24
03:59
WBC 10.2
Hgb 11.8 L
Hct 37.0
Plt Count 230
Sodium 135
Potassium 4.2
Chloride 102
Carbon Dioxide 26
BUN 17
Creatinine 0.8
Glucose 90
Calcium 9.2
Vital Signs:
Vital Signs
Temp Pulse Resp BP Pulse Ox
98.4 F 97 20 107/73 100
04/20/24 12:33 04/20/24 08:00 04/20/24 12:33 04/20/24 07:58 04/20/24 12:33
I&O
04/19/24 04/20/24 04/21/24
06:59 06:59 06:59
Intake Total 480 / 480 240 / 240
Balance 480 / 480 240 / 240
--- NOTE | 2024-04-20 15:14 | CM ---
Chart reviewed. Patient is independent of ADLS, lives with her mother in a 2 [address], 0 [facility]KTOR, 0 DME. Patient currently with no discharge needs. Plan is to return home. CM to follow
[2024-04-20] MEDS: ZESTRIL 2.5 MG PO (16:50)
[2024-04-20] MEDS: COLACE 200 MG PO (16:53)
[2024-04-20] MEDS: MELATONIN 5 MG PO (22:25)
--- NOTE | 2024-04-21 00:56 | PTCARENOTE ---
Pt.'s last BP 103/85 (after Lopressor), NSR on the monitor. Frequently ambulates independently without difficulty. Verbalized that she's hoping for discharge later today. Currently sleeping.
[2024-04-21 03:47] VITALS: BMI 29.2
[2024-04-21 03:48] VITALS: BP 92/56
[2024-04-21 04:48] LABS: % Eosinophils 12.7 % (0-6); % Immature Granulocytes 0.3 % (0-0.5); % Lymphocytes 53.5 % (20.5-51.1); % Monocytes 4.7 % (1.7-9.3); % Neutrophils 27.8 % (42.2-75.2); Absolute Basophils 0.1 10^3/uL (0-0.2); Absolute Eosinophils 1.3 10^3/uL (0-0.7); Absolute Lymphocytes 5.4 10^3/uL (1.2-3.4); Absolute Monocytes 0.5 10^3/uL (0.1-0.6); Absolute Neutrophils 2.8 10^3/uL (1.4-6.5); Hematocrit 35.8 % (37.0-47.0); Hemoglobin 11.5 g/dL (12.0-16.0); Mean Corp Hgb Conc. 32.1 g/dL (33.0-37.0); Mean Corpuscular Volume 87.3 fL (81.0-99.0); Mean Platelet Volume 11.4 fL (7.4-10.4); Nucleated Red Blood Cells % 0.2 %; Platelet Count 229 10^3/uL (130-400); Red Cell Dist. Width 15.6 % (11.5-14.5)
[2024-04-21 06:03] LABS: Blood Urea Nitrogen 20 mg/dl (7-17); Calcium 9.1 mg/dl (8.4-10.2); Carbon Dioxide 27 mmol/L (22-30); Chloride 102 mmol/L (98-107); Estimated Creatinine Clearance 81 ml/min; Glucose 84 mg/dl (70-99); Magnesium 2.4 mg/dl (1.6-2.3); Potassium 4.4 mmol/L (3.5-5.1); Sodium 135 mmol/L (135-145); eGFR > 60.00
--- NOTE | 2024-04-21 07:39 | W.PN.CD ---
Today's Communication / Plan
-
Tolerating a decent GDMT regimen (beta anton, SGLT2i).
She is euvolemic for her degree of LV dysfunction.
Hold ACEI.
Stable for outpatient follow up with [facility] and [facility] ([place]).
Daily weights (current dry weight of 74.8 kg).
Furosemide 40 mg PO PRN weight gain of 1-3 lbs/24 hours, 3-5 lbs/week.
Impression / Plan
-
Impression/Plan: 48-year-old female with history of breast cancer s/p radiation, MS, anxiety/depression admitted with new HFrEF.
#HFrEF (EF 15-20%), NICM
-Acute/severe, requiring hospitalization.
-Presenting as a large pleural effusions, s/p right sided thoracentesis for 1300 mL of transudate, pathology pending.
-Cardiac catheterization shows, no CAD, moderately elevated filling pressures (LVEDP = 23 mmHg, PCWP = 23 mmHg @ 73.9 kg), severely depressed cardiac index (1.7 L/min/m2), SVR of 1642. Cardiomyopathy is likely chemo/radiation mediated.
-Patient became hypotensive with dobutamine.
-She is chronically hypotensive (reports similar BP readings at PCP office). Diuretics (plus lisinopril 2.5 mg) on 04/18/2024 lead to persistent BP's in the 70/50's.
-Her hypotensions responded well to LR bolus, confirming likely preload dependence (she will need an LVEDP of 22-23 to maintain perfusing pressure).
-GDMT as tolerated: BP is main limitation currently.
-SGLT2i: Continue dapagliflozin 10 mg daily.
-CARLI/ARB/ARNI: Initially tolerated lisinopril, but SBP < 90 this morning. Discontinue ACEI.
-Beta anton: Tolerating metoprolol. Change to metoprolol succinate 12.5 mg BID.
-MRA: Spironolactone at some point, perhaps as outpatient.
-Diuretics changed to PRN weight gain. We will consider this her dry weight (74.8 kg).
-Daily weights. Furosemide 40 mg PO for weight gain of 1-3 lbs/24 hours, 3-5 lbs/week.
-She is asymptomatic, but I discussed with our colleagues at [facility]. They are in agreement that she should be seen by advanced HF (possibly future MCS, transplant eval) in [place] or [facility].
#Severe mitral/tricuspid regurgitation
-New diagnosis.
-Likely functional due to severe LV dilation.
-LV < 20%, no role for XOCHILT.
#MS
-Chronic, stable.
#Breast Ca
-Chronic, stable.
-Status postchemotherapy and XRT 7 years ago, in remission (oncology at [facility]).
#Marijuana, encouraged cessation from smoking
#Dispo
-IVU status.
-Full code.
-Discharge planning (likely today).
Subjective/Interval History:
Tolerated addition of metoprolol.
Weight is up 0.8 kg but BP was consistently > 90, even when sleeping.
Lisinopril added yesterday but SBP < 90 this AM.
She is not taking midodrine.
Cardiac MRI shows dilated LV without post contrast enhancement.
She remains asymptomatic.
DATA:
TTE, 04/14/2024:
CONCLUSIONS
Moderate to severely dilated LV with severely reduced systolic function.
LVEF is 15 to 20% by visual estimation.
Global severe hypokinesis with akinesis of the basal inferior wall.
Dilated RV with mildly reduced systolic function.
Severe mitral regurgitation.
Severe tricuspid regurgitation.
Estimated pulmonary artery pressure of 45-50 mmHg assuming a right atrial
pressure of 15 mmHg.
No prior study for comparison.
Cardiac Catheterization, 04/17/2024:
CONCLUSIONS:
1. Right dominant circulation with no coronary artery disease.
2. Severely dilated left ventricle with severe global hypokinesis and akinesis of the inferior wall with severely depressed systolic function. LV ejection fraction estimated at 15%.
3. Severe mitral valve regurgitation (3+).
4. Severely depressed cardiac index (1.73 L/min/m�).
5. Moderately elevated filling pressures (LVEDP = 23 mmHg, PCWP = 23 mmHg at 73.9 kg) with evidence of diastolic dysfunction (A wave to 31 mmHg).
Cardiac MRI, 04/20/2024:
IMPRESSION:
Dilated left ventricle with diffusely diminished contractility, calculated left ventricular ejection fraction of 19%.
There is no evidence of abnormal enhancement of the left ventricle or the rest of the heart.
Severe mitral regurgitation.
Moderate to severe tricuspid regurgitation.
Minimal bilateral pleural effusions, improved from CT of the chest of April 13, 2024.
Small pericardial effusion.
Normal morphology, wall motion, contractility of the right ventricle.
Physical Exam
Vital Signs/Labs
Vital Signs
Temp Pulse Resp BP Pulse Ox
36.9 C 78 20 92/56 98
04/21/24 03:55 04/21/24 04:00 04/21/24 03:55 04/21/24 03:48 04/21/24 03:55
04/19/24 04/20/24 04/21/24
11:59 11:59 11:59
Actual Weight 73.9 kg 74 kg 74.8 kg
04/21/24 03:55
04/21/24 03:55
Magnesium 2.4 mg/dl (1.6-2.3) H 04/21/24 03:55
04/13/24
16:47
Npd-M-[id number] Pept 6380
Physical Exam
Constitutional: No acute distress and Comfortable
EENT: Anicteric and Moist mucous membranes
Cardiovascular: Rhythm & rate is regular, Pedal edema is absent, JVD pressure is normal, Systolic murmur present and S1S2 is normal
Respiratory: Respiratory effort normal, Lungs clear to auscul., Wheeze Absent, Crackles Absent and Rhonchi Absent
GI: Soft, Distention absent, Flat, Non tender and Normal bowel sounds
Neuro/Psych: AO x 3
Data Reviewed
-
Date of Service: April 21, 2024
Medical Decision Making: Reviewed Test Results, Independent Historian Assessment, Test Interpretation and Review of Case with other Provider
EKG: Tracing Personally Visualized and interpreted and Report Reviewed by me
Echo: Tracing Personally Visualized and interpreted and Report Reviewed by me
X-Ray/CT/US/MRI/NUC/PET: Image Personally Visualized and interpreted, Report Reviewed by me, Discussed with Physician and Discussed with Patient
Medical Tests (PFT, Pathology etc): Image Personally Visualized and interpreted, Report Reviewed by me and Discussed with Physician
Labs: Labs Reviewed by me
[2024-04-21 07:48] VITALS: BP 88/73
[2024-04-21 07:50] VITALS: BP 86/55
[2024-04-21] MEDS: CLARITIN 10 MG PO (08:53)
[2024-04-21] MEDS: LOPRESSOR 12.5 MG PO (08:53)
[2024-04-21] MEDS: VISBIOME 1 CAP PO (08:53)
[2024-04-21] MEDS: LOW STRENGTH ASPIRIN 81 MG PO (08:53)
[2024-04-21 08:54] VITALS: BP 102/66
[2024-04-21] MEDS: HEPARIN 5000 UNITS SC (08:54)
[2024-04-21] MEDS: COLACE PO ×2 (08:54→09:05)
[2024-04-21] MEDS: FARXIGA 10 MG PO (08:54)
[2024-04-21] MEDS: COLACE 200 MG PO (09:57)
--- NOTE | 2024-04-21 10:14 | W.PN.HOSP.TC ---
Today's Communication/Plan
-
dc home
GDMT
OP cards f/u
Assessment / Plan
Assessment / Plan
Gen-AAOx3, NAD
HEENT-NC, AT, anicteric, clear oral mm
Neck-supple
CV-reg, no M, +S1/S2
Lungs-clear B/L
Abd-soft, NT, ND
Ext-bilateral lower extremity lymphedema
Musculoskeletal-no cyanosis, clubbing
Skin-warm and dry
Neuro-grossly non-focal
Psych-calm, cooperative
Acute heart failure reduced EF exacerbation -new diagnosis of heart failure. Echocardiogram shows LVEF 15 to 20%, global severe hypokinesis with akinesis of the basal inferior wall, dilated RV with mildly reduced systolic function, severe MR,
severe TR. BNP 6380.
Cardiac catheterization on 04/17 shows no coronary artery disease and no intervention performed. Moderately elevated filling pressure. Nonischemic cardiomyopathy raises possibility due to chemotherapy.
Continue with Jardiance. Now with persistent hypotension and unable to tolerate goal-directed medical therapy associated with beta-blockers, low-dose CARLI inhibitor and Lasix and Entresto.
GDMT severely limited due to hypotension. Monitor on tele-Eventually will require ICD.
Restarted/reintroduce beta-anton. Tolerating so far
Per cardiology Dr. Hunter hold off on restarting lisinopril for now. would prefer Lasix as needed for weight gain. Patient was recommended to check daily weights and check blood pressure at home
Cardiac MRI completed earlier with dilated left ventricular with diffuse diminished contractility EF of 19%. No abnormal enhancement of the left ventricle or the rest of the heart. Severe mitral and tricuspid regurgitation.
Cardiology discussion with [facility] Patient will need to be evaluated for outpatient transplant eval and advanced heart failure clinic
Acute hypoxic respiratory insufficiency -likely due to acute heart failure exacerbation, bilateral pulmonary edema, pleural effusions. Oxygenation normal on room air. Shortness of breath started [address] chest negative for pulmonary embolism. Does show moderate to large bilateral effusions and atelectasis. Left upper lobe subpleural groundglass density of unclear etiology. Consider repeat CT chest in 6 to 12 months.
Bilateral pleural effusions -suspect related to heart failure exacerbation. Right-sided thoracentesis completed April 14, fluid studies consistent with transudate and therefore likely due to heart failure. Residual left-sided effusion remains.
Stable on room air.
Elevated LFTs -unclear etiology, possibly due to passive congestion from heart failure. Possible adverse effect of natalizumab. Asymptomatic.
History of breast cancer -treated 7 years ago and considered cured. Oncologist is in [place].
Bilateral lower extremity lymphedema -she was using as needed Lasix at home, last use was 1 month ago.
Multiple sclerosis -controlled.
Anxiety/depression
Obesity due to excess calories
Full code
Discussed with patient mother at bedside on 04/20
More than 30 minutes spent in discharge including
Final examination of the patient
Summarizing hospital stay
Instructions for continuing care to all relevant caregivers
Preparation of discharge records, prescriptions, and referral forms
Total time spent (in minutes): 52
Anticipated Discharge: Today
Subjective/Interval History
-
Date of Service: April 21, 2024
Denies any chest pain or shortness of breath
Denies any lightheaded or dizziness
Objective Data
-
Labs:
Laboratory Results
04/21/24
03:55
WBC 10.0
Hgb 11.5 L
Hct 35.8 L
Plt Count 229
Sodium 135
Potassium 4.4
Chloride 102
Carbon Dioxide 27
BUN 20 H
Creatinine 0.8
Glucose 84
Calcium 9.1
Vital Signs:
Vital Signs
Temp Pulse Resp BP Pulse Ox
98.1 F 76 20 102/66 100
04/21/24 07:48 04/21/24 10:00 04/21/24 07:48 04/21/24 08:54 04/21/24 07:48
I&O
04/20/24 04/21/24 04/22/24
06:59 06:59 06:59
Intake Total 240 / 240 480 / 480
Balance 240 / 240 480 / 480
--- NOTE | 2024-04-21 10:22 | W.DCSUMMARY ---
Discharge Summary
Discharge Data
Date of Admission: 04/13/24
Date of Discharge: 04/21/24
-
Pending Results: No
Hospital Course
48-year-old female past medical history of MS, chronic bilateral lower EXTR lymphedema, tachycardia, depression, history of breast cancer status post chemotherapy and radiation is presenting for shortness of breath. Patient was found with severely
elevated proBNP. Echocardiogram shows LVEF 15 to 20%, global severe hypokinesis with akinesis of the basal inferior wall, dilated RV with mildly reduced systolic function, severe MR, severe TR. BNP 6380. Cardiac catheterization on 04/17 shows no
coronary artery disease and no intervention performed. Moderately elevated filling pressure. Nonischemic cardiomyopathy raises possibility due to chemotherapy. Continue with Jardiance. Now with persistent hypotension and unable to tolerate
goal-directed medical therapy associated with beta-blockers. Cardiac MRI completed earlier with dilated left ventricular with diffuse diminished contractility EF of 19%. No abnormal enhancement of the left ventricle or the rest of the heart.
Severe mitral and tricuspid regurgitation. Cardiology discussion with [facility] Patient will need to be evaluated for outpatient transplant eval and advanced heart failure clinic. Patient with pleural effusion status post thoracentesis with fluid
studies considered over congestive heart failure. Patient was weaned off the oxygen. CT chest was negative for pulmonary embolism. Patient with chronic hypotension and plan will be to do limited goal-directed medical therapy due to severe
limitation secondary to hypotension. Patient was started on beta-anton, Farxiga. Outpatient patient will be evaluated for further medication titation if blood pressure can tolerate it. Lasix will be for PRN weight gain. Patient will
follow-up outpatient with Dr. Hunter and further arrangements will be made for patient to follow-up with [facility] cardiology as outpatient.
Discharge Plan
-
Patient Disposition: Home (Routine Discharge)
Discharge Diagnosis/Procedures: Acute heart failure, s/p cardiac catheterization
Nonischemic cardiomyopathy
Bilateral pleural effusion status post thoracentesis
Transaminitis
Condition: Fair
Diet: 2 Gram Sodium and Restrict fluids to 48 oz
Activity: With assistance and As tolerated
Driving Restrictions: As prior to admission
Blood Work: BMP in 1 week with primary doctor
Activity Restrictions/Additional Instructions:
Furosemide 40 mg PO PRN weight gain of 1-3 lbs/24 hours, 3-5 lbs/week.
Left upper lobe subpleural groundglass density likely reflects focal alveolar edema, less likely pneumonia or neoplasm. Consider follow-up CT chest in 6 months via primary doctor.
Instructions: *CBC Heart Failure Instructions
Stand Alone Forms: DC Instructions- Cath/EP Lab
Referrals:
Naheed Hernandez CRNP [Specified Professional Personl] - 05/08/24 11:20 am (Cardiology followup )
Malcolm Marie DO [Family Provider] - in less than 1 week
Prescriptions:
New
dapagliflozin propanediol [Farxiga] 10 mg Tablet
10 mg PO DAILY 30 Days Qty: 30 0RF
aspirin [Children's Aspirin] 81 mg Tablet,Chewable
81 mg PO DAILY 30 Days Qty: 30 0RF
metoprolol succinate 25 mg Tablet Extended Release 24 Hr
12.5 mg PO BID 30 Days Qty: 30 0RF
furosemide [Lasix] 40 mg tablet
40 mg PO DAILY PRN (Reason: edema) Qty: 30 0RF
Continued
fexofenadine 180 mg Tablet
180 mg PO DAILY
Fish Oil
3,000 mg PO DAILY
alprazolam 0.5 mg Tablet
0.5 mg PO DAILY PRN (Reason: anxiety)
Patient Comments:
04/13/2024: last filled 03/24/22, 90 tabs for 90 days from [facility]
docusate sodium 100 mg Capsule
200 mg PO DAILY
Tysabri 300 mg/15 mL Solution
300 mg IV Q4W
Visbiome 112.5 billion cell Capsule
1 cap PO DAILY
Medical Marijuana
1 inh inhalation DAILY PRN (Reason: anxiety)
Patient Comments:
04/13/2024: Pt smokes medical marijuana
fiber
2 gummy PO DAILY
Discontinued
furosemide 40 mg Tablet
40 mg PO BID PRN (Reason: swelling)
Patient Comments:
04/13/2024: Unable to find recent fill in last year or any mention of this med in [facility]. Pt states she rarely takes it.
Discharge Orders:
Discharge Patient (As Directed); Ordered 04/21/24
Ordered By: Yeyo Diaz
Discharge Date and Time
Print Language: MONEGASQUE
[2024-04-21 11:44] VITALS: BP 102/85
--- NOTE | 2024-04-21 13:15 | PTCARENOTE ---
The patient has been stable all shift and discharged home.
--- NOTE | 2024-04-21 15:43 | W.HF.CON ---
Heart Failure
- LV Function
Left ventricular function study result: LV Ejection fraction </= 35%
Ejection Fraction Percentage: 15-20
- ARNI
Patient already on ARNI: No
Heart Failure ARNI Contraindication: Hypotension
- ACEI/ARB
Patient already on ACEI/ARB: No
Heart Failure ACEI/ARB Contraindication: Hypotension
- Beta Gelacio
Patient already on Evidence Based Beta Gelacio: Yes
- Mineralocorticord Receptor Antagonist
Patient already on MRA: No
Heart Failure MRA Contraindication: Hypotension
- SGLT-2 Inhibitor
Patient already on SGLT-2 Inhibitor: Yes
- NYHA CHF Classification
NYHA CHF Classification Level: Class III - Symptoms w/ min exertion, interferes w/ nml daily activity
- ACC/AHA Stage
ACC/AHA Stage: Stage C: Symptomatic Heart Failure
== END 2024-04-21 13:47 | disposition home or self-care (01) | DRG 286 ==
LOC: IVU 19:20
PROVIDERS: Hospitalist; Internal Medicine; Internal Medicine Cardiovascular Disease; Nurse Practitioner; Radiology Vascular & Interventional Radiology; ADMITTING PHYSICIAN Hospitalist; ATTENDING PHYSICIAN Hospitalist; EMERGENCY PHYSICIAN Emergency Medicine; FAMILY PHYSICIAN Family Medicine; OTHER PHYSICIAN Internal Medicine Cardiovascular Disease
PROC: 0W993ZZ Drainage of Right Pleural Cavity, Percutaneous Approach (ICD-10-PCS; 2024-04-14)
PROC: 4A023N8 Measurement of Cardiac Sampling and Pressure, Bilateral, Percutaneous Approach (ICD-10-PCS; 2024-04-17)
PROC: B2111ZZ Fluoroscopy of Multiple Coronary Arteries using Low Osmolar Contrast (ICD-10-PCS; 2024-04-17)
PROC: B2151ZZ Fluoroscopy of Left Heart using Low Osmolar Contrast (ICD-10-PCS; 2024-04-17)
DX: I42.7 Cardiomyopathy due to drug and external agent (principal); I50.21 Acute systolic (congestive) heart failure; J90 Pleural effusion, not elsewhere classified; G35 Multiple sclerosis; F41.9 Anxiety disorder, unspecified; T45.1X5A Adverse effect of antineoplastic and immunosuppressive drugs, initial encounter; F32.A Depression, unspecified; I08.1 Rheumatic disorders of both mitral and tricuspid valves; F12.90 Cannabis use, unspecified, uncomplicated; R09.02 Hypoxemia; R06.89 Other abnormalities of breathing; E66.09 Other obesity due to excess calories; I95.89 Other hypotension; I89.0 Lymphedema, not elsewhere classified; Z68.32 Body mass index [BMI] 32.0-32.9, adult; Z85.3 Personal history of malignant neoplasm of breast; Z87.891 Personal history of nicotine dependence; Z92.21 Personal history of antineoplastic chemotherapy; Z92.3 Personal history of irradiation; Y92.9 Unspecified place or not applicable
CPT/HCPCS: 88305; 32555; 71045; 71046; 71275; 75561; 80048; 80053; 82150; 82248; 82945; 83615; 83735; 83880; 83986; 84155; 84157; 84478; 84484; 85025; 85027; 85379; 87015; 87070; 87102; 87205; 87206; 88112; 88341; 88342; 88360; 89051; 93005; 93306; 93460; 99285; A9585; C1760; C1769; C1894; Q9967

== ENCOUNTER → 2024-08-21 12:47 | Outpatient (REF) | payer OTHER, SELFPAY | LOC: RAD 12:47 | PROVIDERS: ATTENDING PHYSICIAN Internal Medicine Cardiovascular Disease; FAMILY PHYSICIAN Family Medicine | DX: R06.09 Other forms of dyspnea (principal); I50.23 Acute on chronic systolic (congestive) heart failure; I42.0 Dilated cardiomyopathy; Z85.3 Personal history of malignant neoplasm of breast; Z92.3 Personal history of irradiation | CPT/HCPCS: 71046 ==

== ENCOUNTER → 2024-08-30 08:02 | Outpatient (REF) | payer OTHER, SELFPAY | LOC: RCS 08:02 | PROVIDERS: ATTENDING PHYSICIAN Internal Medicine Cardiovascular Disease; FAMILY PHYSICIAN Family Medicine | DX: R06.09 Other forms of dyspnea (principal); I50.23 Acute on chronic systolic (congestive) heart failure; I42.0 Dilated cardiomyopathy; Z92.3 Personal history of irradiation | CPT/HCPCS: 93306 ==

== ENCOUNTER → 2024-09-12 08:44 | Outpatient (REF) | payer OTHER, SELFPAY | LOC: RSP 08:44 | PROVIDERS: ATTENDING PHYSICIAN Internal Medicine Cardiovascular Disease; FAMILY PHYSICIAN Family Medicine | DX: R06.09 Other forms of dyspnea (principal); R06.02 Shortness of breath | CPT/HCPCS: 94727; 94729; 71046; 88738; 94060 ==

== ENCOUNTER → 2024-10-16 16:24 | Outpatient (REF) | payer OTHER, SELFPAY | LOC: RAD 16:24 | PROVIDERS: ATTENDING PHYSICIAN Internal Medicine Critical Care Medicine; FAMILY PHYSICIAN Family Medicine | DX: R91.1 Solitary pulmonary nodule (principal) | CPT/HCPCS: 71250 ==

== ENCOUNTER → 2024-11-24 14:30 | Outpatient (REF) | payer OTHER, SELFPAY | LOC: RCS 14:30 | PROVIDERS: ATTENDING PHYSICIAN Internal Medicine Cardiovascular Disease; FAMILY PHYSICIAN Family Medicine | DX: I42.0 Dilated cardiomyopathy (principal) | CPT/HCPCS: 93308; 93321; 93325 ==

== ENCOUNTER 2024-12-29 06:39 | Day surgery (SDC) | payer OTHER, SELFPAY ==
[2024-12-29] VITALS (10 sets, daily range): BP systolic 80–110; BP diastolic 49–94; BMI 28.0
--- NOTE | 2024-12-29 08:02 | W.ICD.CONTRA ---
Post ICD/DIETARY SERVICES MANAGER-D
-
History of RI?: No
LV Function
Left ventricular function study result?: Ejection Fraction </= 35%
ACEI/ARB/ARNI
Patient already on ACEI/ARB/ARNI: Yes
Beta-Gelacio
Patient already on Beta Gelacio: Yes
--- NOTE | 2024-12-29 11:45 | ITS.CL.ICD ---
Biology Instructor - ICD
Implantable Cardioverter Defibrillator
Procedure Report:
Date of Procedure: December 29, 2024.
Procedures:�Biventricular ICD implant.
Indication:� Primary prevention ICD. NYHA heart failure class III for 9 months. LVEF 20% despite maximally tolerated goal directed medical therapy.� QRS duration 146 ms with a LBBB. No history of VT/VF. Nonischemic dilated cardiomyopathy. No history
of MT. Life expectancy exceeds 1 year. Shared decision was employed by Dr. Hunter in the office to arrive at the decision to proceed with BiV ICD implant.
Performing physician: Dre Mehta MD, [facility].
Implants:�
Pulse Generator: Medtronic; Model# [id number]; Serial# [id number]
Right Ventricular Lead: Medtronic; Model# [id number]; Serial# [id number].
Left Ventricular Lead: Medtronic; Model# [id number]; Serial# [id number].�
Technique: A time out was performed. A 10 mL upper extremity venogram demonstrated patent left cephalic, axillary, and subclavian veins. The patient has an active port in the right chest and she did not want the ICD pulse generator on the right side
for that reason. The procedure site was identified. The patient was anesthetized by the anesthesia service. Preoperative cefazolin was administered. The patient was prepped and draped in the usual fashion. Local anesthetic was applied to the left
prepectoral subcutaneous tissue. A 3 inch incision was made along the left deltopectoral groove. Dissection was carried to the fascia. The left cephalic vein was easily isolated and proximal and distal control with 2-0 Vicryl suture. Using a
micropuncture needle to access the cephalic vein under direct visualization a wire was advanced into the central circulation. A 7 Fr introducer was placed to allow two additional 0.35 J wires to be advanced and a retained guidewire technique was
employed. The leads were introduced with hemostatic hydrophilic peel away introducer sheaths.�The ventricular lead was placed at the right ventricular mid to apical septum. The ventricular lead was secured to the pectoralis muscle and fascia with
two 0-silk sutures.� The atrial lead was then placed in the right atrial appendage. The atrial lead was secured to the pectoralis muscle and fascia with two 0-silk sutures. The coronary sinus was accessed with the aid of the Attain Command Sure
Valve [id number] system within 1 minute using standard techniques. Coronary sinus venography (9 mL of contrast) revealed several veins to choose from but the lateral and anterolateral veins are likely too small to easily accommodate the LV lead. The
left ventricular lead was placed in the posterolateral vein and actively fixated with the tip terminating a mid posterolateral position.� The LV lead was secured to the pectoralis muscle and fascia. 8 volt pacing did not capture the diaphragm from
any lead or LV poles evaluated. A subcutaneous pocket was created with Bovie cautery. Hemostasis was excellent. The leads were appropriately attached to the device. The pocket was irrigated with antibiotic solution. A [employer]The[employer] Tyrx Absorbable
antibacterial envelope was placed in the pocket. The device and leads were placed in the pocket. The pulse generator was secured to the pectoralis muscle/fascia with 0-silk suture to prevent migration of the device. The incision was closed in three
layers with absorbable suture. Steri-strips and a a silver impregnated dressing were placed. Estimated blood loss 10 ml. There were no complications. Fluoroscopy time: 8.7 minutes and DAP 2.8 GyCM2. Total IV contrast 19 mL. The device was then
interrogated after skin closure.
System Analysis:
RA lead: P: 2.8 mV; Threshold: 0.5 V @ 0.4 ms; Impedance: 475 ohms.
RV lead: R: 15 mV; Threshold: 0.7 V @ 0.4 ms; Impedance: 495 ohms.
LV lead: R: 3 mV; Threshold: 1.2 V @ 0.4 ms; Impedance: 890 ohms.
Final Programming: Tachy: VT/VF:188 bpm; Sharad: DDD 60-140 bpm.
Conclusion: Uncomplicated Medtronic Biventricular CD implant.� The� ICD system is MRI safe/conditional.
Recommendation: Routine post ICD care.
cc: Malcolm Marie DO and Sumanth Hunter DO.
[2024-12-29] MEDS: ANCEF 5 IV (13:10)
--- NOTE | 2024-12-29 13:14 | W.PN.UPDATE ---
Update Note
Progress Note Update
49 yo WF s/p BiV ICD. She denies cp, sob, janet diet, voiding, CXR no PTX, leads in position, EKG AsVp, pressure dressing in place, no HT. She will continue GDMT for HF. Activity restrictions reviewed. She has inc check in 1 week. She is for d/c home
after 2pm and antibiotic given.
== END 2024-12-29 13:40 | disposition home or self-care (01) ==
LOC: CATH 06:39
PROVIDERS: ATTENDING PHYSICIAN Internal Medicine Cardiovascular Disease; FAMILY PHYSICIAN Family Medicine; OTHER PHYSICIAN Internal Medicine Cardiovascular Disease
DX: I50.22 Chronic systolic (congestive) heart failure (principal); I44.7 Left bundle-branch block, unspecified; I42.0 Dilated cardiomyopathy; Z79.82 Long term (current) use of aspirin; Z79.899 Other long term (current) drug therapy
CPT/HCPCS: 33249; 33225; 71045; 93005; C1769; C1777; C1882; C1887; C1892; C1898; C1900; Q9967

== ENCOUNTER → 2025-06-08 11:14 | Outpatient (REF) | payer OTHER, SELFPAY | LOC: RCS 11:14 | PROVIDERS: ATTENDING PHYSICIAN Internal Medicine Cardiovascular Disease; FAMILY PHYSICIAN Family Medicine | DX: I42.0 Dilated cardiomyopathy (principal); I50.22 Chronic systolic (congestive) heart failure; I34.0 Nonrheumatic mitral (valve) insufficiency; I07.1 Rheumatic tricuspid insufficiency | CPT/HCPCS: 93306 ==